=== PATIENT | male | born 1990 | race Two or more races ===

== ENCOUNTER 2022-12-14 11:01 | Inpatient (IN) ==
[2022-12-14 11:37] LABS: Basophils # (auto) 0.04 K/uL (0-0.2); Basophils % (auto) 0.6 %; Eosinophils # (auto) 0.04 K/uL (0-0.50); Eosinophils % (auto) 0.6 %; Hematocrit (blood only) 45.6 % (42.0-52.0); Hemoglobin 15.6 g/dl (14.0-18.0); Immature Granulocytes # (auto) 0.02 K/uL (0.01-0.20); Immature Granulocytes % (auto) 0.3 %; Lymphocytes % (auto) 14.1 %; Mean Corpuscular Hemoglobin 29.9 pg (25.0-34.0); Mean Corpuscular Hgb Conc 34.2 g/dL (32.0-36.0); Mean Corpuscular Volume 87.4 fL (80.0-100.0); Mean Platelet Volume 10.7 fL (9.4-12.4); Monocytes # (auto) 0.54 K/uL (0.11-0.59); Monocytes % (auto) 7.6 %; Neutrophils # (auto) 5.43 K/uL (1.40-6.50); Neutrophils % (auto) 76.8 %; Platelet Count 226 K/uL (130-400); RDW Coefficient of Variation 12.9 % (11.5-14.5); RDW Standard Deviation 41.3 fL (36.4-46.3); Red Blood Count 5.22 M/uL (4.70-6.10); White Blood Count 7.07 K/ul (4.8-10.8)
[2022-12-14 11:51] LABS: Calcium 9.5 mg/dl (8.6-10.3); Creatinine Clr Calc Pharmacy 206.5 ml/min; Est GFR (African American) 137.2 ml/min; Est GFR (Non-African American) 118.4 ml/min; Potassium 4.4 mmol/L (3.5-5.1)
--- NOTE | 2022-12-14 12:31 | Ultrasound Report ---
ULTRASOUND RIGHT UPPER QUADRANT ABDOMEN CLINICAL HISTORY: Right upper quadrant abdominal pain. COMPARISON STUDY: No priors. TECHNIQUE: Real-time, grayscale, and color flow sonography of the right upper quadrant of the abdomen was performed. Images are reviewed in the transverse and longitudinal planes. FINDINGS: Liver: The liver is normal in size and echotexture. There is no intrahepatic biliary ductal dilatatio n. The main portal vein is patent. Gallbladder: There are numerous shadowing calcified gallstones. The gallbladder is mildly distended. The gallbladder wall appears mildly thickened and edematous. No pericholecystic fluid is seen. A sono graphic Coronado's sign is reportedly absent. The common bile duct measures up to 0.9 cm in diameter. Pancreas: Not visualized due to overlying bowel gas. Right kidney: Survey images of the right kidney demonstrate normal size and echotexture. There is no hydronephrosis. Ascites: None. IMPRESSION: 1. Cholelithiasis within a distended and abnormal appearing gallbladder. Findings are suspicious for acute cholecystitis. Surgical assessment is advised. If clinically warranted a nuclear hepatobiliary scan could be considered for confirmation. 2. The common bile duct is dilated for age measuring up to 9 mm. 3. No intrahepatic biliary ductal dilatation is seen. 4. Nonvisualization of the pancreas. ACT 112: Negative or not required by law. Electronically signed by: Jayce Mckeon M.D. 12/14/2022 12:29 PM
--- NOTE | 2022-12-14 12:42 | Emergency Department Note ---
Impression & Plan Abdominal pain, RUQ, Transaminitis, Serum total bilirubin elevated, Choledocholithiasis ED Provider Note HISTORY OF PRESENT ILLNESS: Patient is a 32-year-old male presenting with right upper quadrant abdominal pain, nausea and vomiting. Patient reports he has been having symptoms for the last 2 weeks. He reports that 2 days ago he noticed that his skin was very yellow. He was evaluated at the [facility] and a urine sample was obtained that apparently looked "tea colored." He was instructed to present to the ER due to concern for potential gallbladder or liver etiology. Patient reports that his jaundice has improved over the last 48 hours. He reports he intermitt ently gets pain in his right upper quadrant over the last 2 weeks. He denies any history of abdominal surgeries. Reports nausea and multiple episodes of vomiting. Denies any diarrhea. Denies any notable fevers. Denies any chest pain or shortness of breath ROS: as above PHYSICAL EXAM: Constitutional: Patient appears in no acute distress. HENT: Head: Normocephalic and atraumatic. Eyes: EOMI, PERRL Mouth/Throat: Mucous membranes moist. Neck: Trachea midline. Neck supple. Cardiovascular: RRR, No murmurs, rubs or gallops. Intact distal pulses. Pulmonary/Chest: No respiratory distress. Breath sounds clear and equal bilaterally. No wheezes or rales. Abdominal: Abdomen soft, no rebound or guarding. RUQ TTP Musculoskeletal: No edema, tenderness or deformity noted. Skin: Warm and dry. No rash, erythema, pallor or cyanosis Psychiatric: Appropriate mood and affect for situation. Neurological: Alert and keenly responsive. CN II-XII grossly intact, moving all extremities equally and fully. MDM: - Vitals signs stable. - History obtained via patient. Patient presents with right upper quadrant abdominal pain, nausea and vomiting. Patient reports has been having symptoms intermittently for the last 2 weeks. Reports that 2 days ago he noticed that his skin was very yellow in color, but it has since improved. Reports that he having nausea and multiple episodes of vomiting. Denies any diarrhea. Denies any fevers. Denies any abdominal surgical history. - Chronic conditions affecting care: HTN - Differential diagnoses include, but are not limited to: Biliary colic; cholangitis; cholecystitis; hepatitis; right lower lobe pneumonia; pyelonephritis - Order placed for continuous cardiac monitoring. At this time, monitor showed rate of 70 bpm with normal sinus rhythm, per my interpretation. - External medical records reviewed. - Laboratory workup interpreted by myself showed normal WBC; hyponatremia (Na 125); elevated total bilirubin (6.9); transaminitis (AST 169; ALT 554); normal lipase - RUQ US showed cholelithiasis with distended and abnormal appearing gallbladder, concerning for acute cholecystitis. Common bile duct measures 9 mm. - CT abdomen/pelvis with IV contrast showed mild biliary ductal dilation and possible CBD stone. Noted to have mild gallbladder distension without adjacent infiltration. - IV zosyn ordered for coverage. - Patient given 1L NS in ER. He did not require any pain medications in ER. - Discussed case with Luis F CORADO air intercept controller, Dr. Reddy. He reports no capabilities of doing ERCP at this time. Recommended discussion with Marjan CORADO. - Discussed case with Marjan CORADO, Dr. Conway. Recommends admission to ospitalist service and plan for ERCP tomorrow. - Discussion was had with rn social services about patient's case and need for admission. - Hospitalist consulted for admission. - Patient admitted to [facility] service for further evaluation and management. ASSESSMENT AND PLAN: Diagnosis: RUQ abdominal pain; choledocholithiasis; nausea; transaminitis; elevated serum total bilirubin Plan: admit Past Med/Surg History Social History Smoking Status: Current every day smoker Tobacco Type: Cigarettes Feels Safe at Home: Yes Results & Data (ED) Vital Signs Vital Signs - 24 hr 12/14/22 11:06 12/14/22 12:26 12/14/22 14:27 Temperature 36.8 C Temperature Source Skin Pulse Rate 79 70 65 Respiratory Rate 18 18 18 Blood Pressure 130/78 136/72 117/59 L Blood Pressure Mean 95 93 78 Pulse Oximetry 97 98 99 Sepsis Recent Fever Within 48 Hours No Sepsis New/Unexplained Change in Mental Status No Sepsis Action Taken by Nursing No Action Required 12/14/22 14:31 Temperature Temperature Source Pulse Rate 69 Respiratory Rate Blood Pressure Blood Pressure Mean Pulse Oximetry Sepsis Recent Fever Within 48 Hours Sepsis New/Unexplained Change in Mental Status Sepsis Action Taken by Nursing Laboratory Data 12/14/22 11:17 12/14/22 11:17 Lab Results 12/14/22 12/14/22 Range/Units 11:17 11:17 WBC 7.07 (4.8-10.8) K/ul RBC 5.22 (4.70-6.10) M/uL Hgb 15.6 (14.0-18.0) g/dl Hct 45.6 (42.0-52.0) % MCV 87.4 (80.0-100.0) fL MCH 29.9 (25.0-34.0) pg MCHC 34.2 (32.0-36.0) g/dL RDW Std Deviation 41.3 (36.4-46.3) fL RDW Coeff of Mauro 12.9 (11.5-14.5) % Plt Count 226 (130-400) K/uL MPV 10.7 (9.4-12.4) fL Immature Gran % (Auto) 0.3 % Neut % (Auto) 76.8 % Lymph % (Auto) 14.1 % Collin % (Auto) 7.6 % Eos % (Auto) 0.6 % Baso % (Auto) 0.6 % Neut # (Auto) 5.43 (1.40-6.50) K/uL Lymph # (Auto) 1.00 L (1.2-3.4) K/uL Collin # (Auto) 0.54 (0.11-0.59) K/uL Eos # (Auto) 0.04 (0-0.50) K/uL Baso # (Auto) 0.04 (0-0.2) K/uL Immature Gran # (Auto) 0.02 (0.01-0.20) K/uL Sodium 125 L (136-145) mmol/L Potassium 4.4 (3.5-5.1) mmol/L Chloride 96 L (98-107) mmol/L Carbon Dioxide 20 L (21-32) mmol/L Anion Gap 9 (3-11) BUN 10 (6-23) mg/dl Creatinine 0.77 (0.6-1.4) mg/dl Est Cr Clr Drug Dosing 206.5 ml/min Est GFR ( Amer) 137.2 ml/min Est GFR (Non-Af Amer) 118.4 ml/min BUN/Creatinine Ratio 13.0 (10-20) Glucose 126 H (70-99(Fasting)) mg/dl Calcium 9.5 (8.6-10.3) mg/dl Total Bilirubin 6.9 H (0.2-1.0) mg/dl AST 169 H (13-39) U/L ALT 554 H (7-52) U/L Alkaline Phosphatase 211 H (34-104) U/L Total Protein 8.2 (6.0-8.3) gm/dl Albumin 4.8 (3.4-5.0) gm/dl Globulin 3.4 (2.5-4.0) gm/dl Albumin/Globulin Ratio 1.4 (0.9-2) Lipase 15 (11-82) U/L Administered Medications Piperacillin Sod/Tazobactam Sod (Zosyn) 4.5 gm in 120 mls @ 240 mls/hr IV NOW ONE Stop: 12/14/22 15:47 Last Admin: 12/14/22 15:34 Dose: 240 mls/hr Documented By: JOSIANE Sodium Chloride (Nss 1000ml) 1,000 mls @ 999 mls/hr IV .Q1H1M ONE Stop: 12/14/22 16:23 Last Admin: 12/14/22 15:38 Dose: 999 mls/hr Documented By: JOSIANE Discontinued Medications Sodium Chloride (Nss 1000ml) 1,000 mls @ 999 mls/hr IV .Q1H1M ONE Stop: 12/14/22 13:46 Last Infusion: 12/14/22 15:45 Dose: 0 mls/hr Documented By: Admin: 12/14/22 14:24 Dose: 999 mls/hr Documented By: TIM Ioversol (Ioversol 350 Mg 125ml Prefilled Syringe) 120 ml IV ONCE ONE Stop: 12/14/22 13:05 Last Admin: 12/14/22 13:04 Dose: 120 ml Documented By: ELE Imaging Data Radiologist's Impression: Gallbladder Ultrasound 12/14/22 11:31 ULTRASOUND RIGHT UPPER QUADRANT ABDOMEN CLINICAL HISTORY: Right upper quadrant abdominal pain. COMPARISON STUDY: No priors. TECHNIQUE: Real-time, grayscale, and color flow sonography of the right upper quadrant of the abdomen was performed. Images are reviewed in the transverse and longitudinal planes. FINDINGS: Liver: The liver is normal in size and echotexture. There is no intrahepatic biliary ductal dilatation. The main portal vein is patent. Gallbladder: There are numerous shadowing calcified gallstones. The gallbladder is mildly distended. The gallbladder wall appears mildly thickened and edematous. No pericholecystic fluid is seen. A sonographic Coronado's sign is reportedly absent. The common bile duct measures up to 0.9 cm in diameter. Pancreas: Not visualized due to overlying bowel gas. Right kidney: Survey images of the right kidney demonstrate normal size and echo texture. There is no hydronephrosis. Ascites: None. IMPRESSION: 1. Cholelithiasis within a distended and abnormal appearing gallbladder. Findings are suspicious for acute cholecystitis. Surgical assessment is advised. If clinically warranted a nuclear hepatobiliary scan could be considered for confirmation. 2. The common bile duct is dilated for age measuring up to 9 mm. 3. No intrahepatic biliary ductal dilatation is seen. 4. Nonvisualization of the pancreas. ACT 112: Negative or not required by law. Electronically signed by: Jayce Mckeon M.D. 12/14/2022 12:29 PM Abdomen/Pelvis CT 12/14/22 12:40 CT OF THE ABDOMEN AND PELVIS WITH CONTRAST CLINICAL HISTORY: RUQ abdominal pain; jaundice COMPARISON STUDY: Right upper quadrant ultrasound performed earlier today. TECHNIQUE: Following IV administration of 120 mL of Optiray, axial images of the abdomen and pelvis were obtained from the lung bases to the proximal femurs. Images were reviewed in the axial, sagittal, and coronal planes. IV contrast was administered without complication. Automated exposure control was utilized for the study. A dose lowering technique was utilized adhering to the principles of ALARA. CT DOSE: 1648.11 mGy.cm FINDINGS: Lung bases are unremarkable. No pneumatosis, free air or portal venous gas is present. There is mild intra and extrahepatic biliary ductal dilatation. Common bile duct measures 8 mm in caliber. There are equivocal stones within the common bile duct. The gallbladder is mildly distended. There is no adjacent infiltration. Gallstones within the gallbladder on ultrasound are not evident by CT. There is no evidence for acute pancreatitis by CT. Spleen, adrenal glands and kidneys are normal. There is no hydronephrosis. The appendix is normal. There is no evidence for a bowel obstruction. IMPRESSION: 1. Mild biliary ductal dilatation. Possible common bile duct calculi. If indicated, MRCP could be obtained for confirmation. 2. Mild gallbladder distention without adjacent infiltration. Gallstones on ultrasound are not evident by CT. If suspicion for acute cholecystitis, a hepatobiliary scan could be obtained. 3. No CT evidence for acute pancreatitis. 4. Normal appendix. No bowel obstruction. No bowel wall thickening. ACT 112: Negative or not required by law. Electronically signed by: Yasir East M.D. 12/14/2022 1:34 PM Discharge Plan Visit Data Chief Complaint: Abdominal Pain Stated Complaint: RUQ PAIN,X2 WEEKS VOMITING,DARK URINE,PAIN ED Provider: Sheila Cortés Discharge Problem: Abdominal pain, RUQ, Transaminitis, Serum total bilirubin elevated, Choledocholithiasis Forms Stand Alone Forms: My [facility] Referrals Referrals: Olga PAIZ [Primary Care Provider] -
[2022-12-14] MEDS ORDERED: SODIUM CHLORIDE 0.9% 1000ML 1,000 ML IV ONE ×2 (12:46→15:23)
[2022-12-14] MEDS ORDERED: IOVERSOL 350 MG 125mL Prefilled Syringe IV ONE (13:04)
--- NOTE | 2022-12-14 13:35 | CT Scan Report ---
CT OF THE ABDOMEN AND PELVIS WITH CONTRAST CLINICAL HISTORY: RUQ abdominal pain; jaundice COMPARISON STUDY: Right upper quadrant ultrasound performed earlier today. TECHNIQUE: Following IV administration of 120 mL of Optiray, axial images of the abdomen and pelvis w ere obtained from the lung bases to the proximal femurs. Images were reviewed in the axial, sagittal, and coronal planes. IV contrast was administered without complication. Automated exposure control w as utilized for the study. A dose lowering technique was utilized adhering to the principles of HUMERA Andrew. CT DOSE: 1648.11 mGy.cm FINDINGS: Lung bases are unremarkable. No pneumatosis, free air or portal venous gas is present. Ther e is mild intra and extrahepatic biliary ductal dilatation. Common bile duct measures 8 mm in caliber . There are equivocal stones within the common bile duct. The gallbladder is mildly distended. There is no adjacent infiltration. Gallstones within the gallbladder on ultrasound are not evident by CT. T here is no evidence for acute pancreatitis by CT. Spleen, adrenal glands and kidneys are normal. Ther e is no hydronephrosis. The appendix is normal. There is no evidence for a bowel obstruction. IMPRESSION: 1. Mild biliary ductal dilatation. Possible common bile duct calculi. If indicated, MRCP could be obt ained for confirmation. 2. Mild gallbladder distention without adjacent infiltration. Gallstones on ultrasound are not eviden t by CT. If suspicion for acute cholecystitis, a hepatobiliary scan could be obtained. 3. No CT evidence for acute pancreatitis. 4. Normal appendix. No bowel obstruction. No bowel wall thickening. ACT 112: Negative or not required by law. Electronically signed by: Yasir East M.D. 12/14/2022 1:34 PM
[2022-12-14 13:56] LABS: Albumin Globulin Ratio 1.4 (0.9-2); Albumin Level 4.8 gm/dl (3.4-5.0); Bilirubin,Total 6.9 mg/dl (0.2-1.0); Globulin 3.4 gm/dl (2.5-4.0); Total Protein 8.2 gm/dl (6.0-8.3)
[2022-12-14] MEDS ORDERED: PIPERACILLIN/TAZOBACTAM 4.5 GM/120 ML BAG IV ONE (15:18)
--- NOTE | 2022-12-14 16:38 | History & Physical Report ---
Date of Service December 14, 2022 Assessment & Plan (1) Abdominal pain, RUQ: (2) Choledocholithiasis: (3) Transaminitis: Plan: 32-year-old obese man with history of hypertension who presents with intermittent right upper quadrant pain that started 2 weeks ago and jaundice Labs notable for sodium of 125, total bilirubin of 6.9, AST of 169, ALT of 554, alkaline phosphatase of 211. Gallbladder ultrasound noted cholelithiasis within a distended and abnormally appearing gallbladder, findings suspicious for acute cholecystitis. CBD dilated up to [address] noted mild biliary ductal dilatation, possible CBD calculi, mild gallbladder distention without adjacent infiltration. Patient has choledocholithiasis, obstructive jaundice. ER physician already discussed with GI. We will keep patient on clears today and n.p.o. past midnight for ERCP tomorrow. Based on patient's history, physical exam and current lab work; my suspicion for cholecystitis is very low. Reported last episode of pain was about 3 days ago. No fever, no leukocytosis, no tenderness on palpation Got Zosyn in ER. We will hold off further antibiotics and monitor. Continue to monitor LFTs (4) Hyponatremia: Plan: Sodium is 125. Does not have any previous labs to compare. Get serum osmolality, urine osmolality and urine sodium We will repeat a BMP as well. We will monitor (5) Hypertension: Plan: Controlled. Continue home medication for now monitor (6) Morbid obesity with BMI of 45.0-49.9, adult: Plan: Patient is morbidly obese. Lifestyle modification education. Need to lose weight. DVT prophylaxisSCD for today. I spent a total of 65 minutes coordinating, documenting and providing care for this patient excluding time spent in performance of separately billed services History of Present Illness Chief Complaint: Jaundice. RUQ pain Primary Care Provider: CHENCHO Espinoza 32-year-old man with history of hypertension, gastritis who presents with right upper quadrant pain that started 2 weeks ago and jaundice. Patient reported that he started having nausea and vomiting 2 weeks ago after eating some food at the [facility]. Right upper quadrant pain started shortly after. Pain was intermittent, severe, nonradiating, no known relieving or aggravating factors. Last episode of pain was about 3 days ago. He also noted change in color of his urine to tea colored for the past few days. Reported that he was told he was yellowish 2 days ago He reported that [facility] test at [facility] was noted to be abnormal and they sent him to the ER. Denied any fevers, chills. No nausea vomiting today. Reported 2 episodes of shelli colored loose stool earlier today. Denied any hematochezia, melena. Denied shortness of breath. Reports chronic cough which he attributes to e- cigarette smoking. Denied chest pain, headache, dizziness. Denied dysuria, frequency urgency. Denied alcohol or illicit drug use. Reports tonsillectomy as a kid. Reports allergy to fish [rash]. Reports family history of brain tumor in mother and father from unknown cancer. Allergies Allergy/AdvReac Type Severity Reaction Status Date / Time Fish Containing Products Allergy Unknown ON SCI Verified 12/14/22 16:20 [facility] Home Medications Medication Instructions Recorded Confirmed Type amlodipine 5 mg tablet 5 mg PO DAILY 12/14/22 12/14/22 History atorvastatin 20 mg tablet 20 mg PO DAILY 12/14/22 12/14/22 History lisinopril 20 mg tablet 20 mg PO BID 12/14/22 12/14/22 History sucralfate 1 gram tablet 1 g PO TID 12/14/22 12/14/22 History Past Med/Surg History Social History Smoking Status: Current every day smoker Tobacco Type: Cigarettes Feels Safe at Home: Yes Review of Systems Constitutional: no fever, no chills, no fatigue and no anorexia Eyes: no worsening vision Respiratory: + cough; no chest congestion and no dyspnea Cardiovascular: no chest pain, no dyspnea and no lightheadedness Gastrointestinal: + abdominal pain, + change in stools and + diarrhea/loose stools; no constipation and no blood in stools Genitourinary: no dysuria, no difficulty urinating or no decreased urination Integumentary: + yellowing of the skin Neurologic: no generalized weakness, no abnormal movements, no headache(s), no confusion and no memory loss Psychiatric: no depression and no anxiety Physical Exam Constitutional: + well hydrated and + obese; no acute distress Eyes: +icterus ENMT: external ear and nose normal, oropharynx normal Respiratory: normal respiratory effort, lungs clear to auscultation Cardiovascular: Rate/Rhythm: regular rate and regular rhythm S1 S2 Gastrointestinal (Abdomen): normal bowel sounds, soft, nontender, no hepatosplenomegaly Musculoskeletal: no cyanosis or clubbing, extremities motor strength 5/5 No pedal edema Skin: +Jaundice Neurologic: PERRL, EOMI, accommodation nl, no face palsy, no dysarthria Psychiatric: A+Ox3, euthymic affect Results & Data Results & Data Vital Signs (Past 12 Hours) Vital Signs Temp Pulse Resp BP Pulse Ox 12/14/22 16:00 64 100 12/14/22 15:30 100 12/14/22 15:00 65 100 12/14/22 14:30 64 100 12/14/22 14:30 109/57 L 12/14/22 14:31 69 12/14/22 14:27 65 18 117/59 L 99 12/14/22 12:26 70 18 136/72 98 12/14/22 11:06 36.8 C 79 18 130/78 97 Laboratory Results Abnormal lab results 12/14/22 12/14/22 Range/Units 11:17 11:17 Lymph # (Auto) 1.00 L (1.2-3.4) K/uL Sodium 125 L (136-145) mmol/L Chloride 96 L (98-107) mmol/L Carbon Dioxide 20 L (21-32) mmol/L Glucose 126 H (70-99(Fasting)) mg/dl Total Bilirubin 6.9 H (0.2-1.0) mg/dl AST 169 H (13-39) U/L ALT 554 H (7-52) U/L Alkaline Phosphatase 211 H (34-104) U/L Diagnostic Findings Abdominal/pelvis CT FINDINGS: Lung bases are unremarkable. No pneumatosis, free air or portal venous gas is present. There is mild intra and extrahepatic biliary ductal dilatation. Common bile duct measures 8 mm in caliber. There are equivocal stones within the common bile duct. The gallbladder is mildly distended. There is no adjacent infiltration. Gallstones within the gallbladder on ultrasound are not evident by CT. There is no evidence for acute pancreatitis by CT. Spleen, adrenal glands and kidneys are normal. There is no hydronephrosis. The appendix is normal. There is no evidence for a bowel obstruction. IMPRESSION: 1. Mild biliary ductal dilatation. Possible common bile duct calculi. If indicated, MRCP could be obtained for confirmation. 2. Mild gallbladder distention without adjacent infiltration. Gallstones on ultrasound are not evident by CT. If suspicion for acute cholecystitis, a hepatobiliary scan could be obtained. 3. No CT evidence for acute pancreatitis. 4. Normal appendix. No bowel obstruction. No bowel wall thickening. Gallbladder ultrasound FINDINGS: Liver: The liver is normal in size and echotexture. There is no intrahepatic biliary ductal dilatation. The main portal vein is patent. Gallbladder: There are numerous shadowing calcified gallstones. The gallbladder is mildly distended. The gallbladder wall appears mildly thickened and edematous. No pericholecystic fluid is seen. A sonographic Coronado's sign is reportedly absent. The common bile duct measures up to 0.9 cm in diameter. Pancreas: Not visualized due to overlying bowel gas. Right kidney: Survey images of the right kidney demonstrate normal size and echotexture. There is no hydronephrosis. Ascites: None. IMPRESSION: 1. Cholelithiasis within a distended and abnormal appearing gallbladder. Fin dings are suspicious for acute cholecystitis. Surgical assessment is advised. If clinically warranted a nuclear hepatobiliary scan could be considered for confirmation. 2. The common bile duct is dilated for age measuring up to 9 mm. 3. No intrahepatic biliary ductal dilatation is seen. 4. Nonvisualization of the pancreas.
[2022-12-14 17:23] LABS: Appearance Urine Clear (Clear); Blood Urine Negative (Negative); Color Urine Dark Yellow; Glucose Urine UA Negative (Negative); Ketones Urine Negative (Negative); Leukocyte Esterase Urine Negative (Negative); Nitrite Urine Negative (Negative); Protein Urine Negative (Negative); Specific Gravity Urine 1.031 (1.000-1.030); Urobilinogen Urine Negative (Negative); pH Urine 5.5 (4.5-7.5)
[2022-12-14 17:42] LABS: Bilirubin Urine 2+ (Negative)
[2022-12-14] MEDS: SUCRALFATE 1 GM TAB PO SCH (20:39)
[2022-12-14] MEDS: lisinopril 20 MG TAB PO SCH (20:39)
[2022-12-14 21:14] LABS: BUN Creatinine Ratio 9.9 (10-20); Calcium 9.4 mg/dl (8.6-10.3); Creatinine Clr Calc Pharmacy 196.3 ml/min; Est GFR (African American) 134.4 ml/min; Potassium 4.4 mmol/L (3.5-5.1)
[2022-12-15 08:25] LABS: Hematocrit (blood only) 43.6 % (42.0-52.0); Hemoglobin 15.1 g/dl (14.0-18.0); Mean Corpuscular Hemoglobin 30.1 pg (25.0-34.0); Mean Corpuscular Hgb Conc 34.6 g/dL (32.0-36.0); Mean Platelet Volume 11.3 fL (9.4-12.4); Platelet Count 182 K/uL (130-400); RDW Coefficient of Variation 13.2 % (11.5-14.5); RDW Standard Deviation 42.7 fL (36.4-46.3); Red Blood Count 5.01 M/uL (4.70-6.10); White Blood Count 6.32 K/ul (4.8-10.8)
[2022-12-15] MEDS: SUCRALFATE 1 GM TAB PO SCH ×3 (08:35→19:42)
[2022-12-15] MEDS: lisinopril 20 MG TAB PO SCH (08:35)
[2022-12-15] MEDS: amLODIPine BESYLATE 5 MG TAB PO SCH (08:35)
[2022-12-15] MEDS: ATORVASTATIN 20 MG TAB PO SCH (08:36)
[2022-12-15 08:55] LABS: Potassium 4.4 mmol/L (3.5-5.1)
[2022-12-15 08:56] LABS: Albumin Globulin Ratio 1.4 (0.9-2); Albumin Level 4.4 gm/dl (3.4-5.0); Bilirubin,Total 8.4 mg/dl (0.2-1.0); Calcium 9.6 mg/dl (8.6-10.3); Creatinine Clr Calc Pharmacy 211.8 ml/min; Est GFR (African American) 138.7 ml/min; Est GFR (Non-African American) 119.7 ml/min; Globulin 3.1 gm/dl (2.5-4.0); Total Protein 7.5 gm/dl (6.0-8.3)
--- NOTE | 2022-12-15 09:44 | Gastrointestinal Consultation ---
Date of Consultation December 15, 2022 Assessment & Plan (1) Choledocholithiasis: Plan Plan for ERCP this afternoon by Dr. Shields. Please keep n.p.o. Further recommendations to follow ERCP. Eventual cholecystectomy. Gen surgery consult placed. Supervising Physician Co-Signing Physician Notes I have seen and examined the patient with TAYLOR Bautista whose note reflects our findings and plan. ERCP planned for this afternoon. General surgery on board for eventual reyes History of Present Illness Reason for Consultation: choledocholithiasis Requesting Physician: Dr. Cortés Attending Physician: Lana Hackett MD History of Present Illness Mr. Reinier Hummel is a 32-year-old male patient who is an inmate who was brought to [facility] yesterday for elevated LFTs, right upper quadrant pain. He reports that this began about 2 weeks ago after eating and persisted an hour or 2. Since then he has had intermittent right upper quadrant pain nausea and diarrhea. He also had a few days of acholic stools and dark urine. On arrival in the ED, LFTs were markedly elevated with a total bilirubin of 6.9, AST of 69 ALT 554 and alk phos 211. Lipase was normal. US w distended gallbladder and stones. CT w mild Jorje Dil and possible CBD stone. This morning, the patient is awake alert oriented, hemodynamically stable, free of pain. He is n.p.o. and awaiting ERCP this afternoon. He received 1 dose of Zosyn. He has not had leukocytosis or fever. Allergies Allergy/AdvReac Type Severity Reaction Status Date / Time Fish Containing Products Allergy Unknown ON SCI Verified 12/14/22 16:20 [facility] MED LIST Home Medications Medication Instructions Recorded Confirmed Type amlodipine 5 mg tablet 5 mg PO DAILY 12/14/22 12/14/22 History atorvastatin 20 mg tablet 20 mg PO DAILY 12/14/22 12/14/22 History lisinopril 20 mg tablet 20 mg PO BID 12/14/22 12/14/22 History sucralfate 1 gram tablet 1 g PO TID 12/14/22 12/14/22 History Patient History Medical History Choledocholithiasis Hypertension Hyponatremia Morbid obesity with BMI of 45.0-49.9, adult Transaminitis Social History Smoking Status: Current every day smoker Tobacco Type: Cigarettes Hx Alcohol Use: No Preferred Language: [place]i 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 Beliefs That Will Affect Care: None Current Living Situation: Other Feels Safe at Home: Yes Review of Systems Review of Systems: ROS: Gen: Denies weakness, fevers, weight loss Eyes: No eye redness, or pain, no recent vision changes Resp: No SOB, no cough Cardio: No palpitations/irregular beats, no chest pain GI: As per HPI otherwise negative : Denies pain on urination Skin: + jaundice; no itching or new rashes Ext: no edema Physical Exam Constitutional: well developed, well nourished and + overweight; no acute distress Eyes: + scleral abnormality (mild icterus), PERRL and EOM intact bilaterally ENMT: external ear and nose normal, oropharynx normal Neck: trachea midline, no thyromegaly Respiratory: normal respiratory effort, lungs clear to auscultation Cardiovascular: RRR, no murmur, no edema Gastrointestinal (Abdomen): Inspection/Auscultation: abdomen normal to inspection and + hypoactive bowel sounds; abdomen not distended Percussion/Palpation: + abdomen tender (Mild epigastric) and abdomen soft; no guarding and no abdominal mass Musculoskeletal: no cyanosis or clubbing, extremities motor strength 5/5 Skin: no rashes and no lesions mild jaundice Psychiatric: A+Ox3, euthymic affect Lymphatic: no cervical or axillary lymphadenopathy Results & Data Vital Signs (Past 12 Hours) Vital Signs Temp Pulse Resp BP Pulse Ox O2 Del Method 12/15/22 07:33 36.8 C 69 15 101/66 97 Room Air Laboratory Results WBC 6.3, Hb 15, HCT 43, PLT S182, NA 127, K4.4, CL 97, CO2 24, BUN 9, CR 0.75, glucose 121 Lipase normal Diagnostic Findings RUQ US 12/15/22: 1. Cholelithiasis within a distended and abnormal appearing gallbladder. Findings are suspicious for acute cholecystitis. Surgical assessment is advised. If clinically warranted a nuclear hepatobiliary scan could be considered for confirmation. 2. The common bile duct is dilated for age measuring up to 9 mm. 3. No intrahepatic biliary ductal dilatation is seen. 4. Nonvisualization of the pancreas. CTAP w IV 12/14/22: 1. Mild biliary ductal dilatation. Possible common bile duct calculi. If indicated, MRCP could be obtained for confirmation. 2. Mild gallbladder distention without adjacent infiltration. Gallstones on ultrasound are not evident by CT. If suspicion for acute cholecystitis, a hepatobiliary scan could be obtained. 3. No CT evidence for acute pancreatitis. 4. Normal appendix. No bowel obstruction. No bowel wall thickening
--- NOTE | 2022-12-15 09:55 | Anesthesiology Consultation ---
Date of Service December 15, 2022 Assessment & Plan (1) Encounter for pre-operative examination: Chart Review Chart Review: Acceptable Risk for Surgery and Patient NOT seen in Pre Admission Testing Consults Requested none ASA ASA3 Proposed Anesthesia Anesthesia Type: General Risk / Benefits Reviewed With: PT / POA / Parent / Guardian, Accepts Plan and I nformed Consent Obtained History Surgery Operation Date: 12/15/22 07:50 Proposed Procedures p Endoscopic Retrograde Cholangiopancreato - Sanya Shields MD Height/Weight Height: 5 ft 11 in Weight: 156.8 kg Allergies Allergy/AdvReac Type Severity Reaction Status Date / Time Fish Containing Products Allergy Unknown ON SCI Verified 12/14/22 16:20 [facility] MED LIST Medications Home Medications Medication Instructions Recorded Confirmed Last Taken amlodipine 5 mg tablet 5 mg PO DAILY 12/14/22 12/14/22 Unknown atorvastatin 20 mg tablet 20 mg PO DAILY 12/14/22 12/14/22 Unknown lisinopril 20 mg tablet 20 mg PO BID 12/14/22 12/14/22 Unknown sucralfate 1 gram tablet 1 g PO TID 12/14/22 12/14/22 Unknown Active Medications Generic Name Dose Route Start Last Admin Trade Name Freq PRN Reason Stop Dose Admin Amlodipine Besylate 5 mg 12/15/22 09:00 12/15/22 08:35 Amlodipine Besylate 5 Mg Tab PO 01/14/23 08:59 5 mg DAILY JOSE Administration Atorvastatin Calcium 20 mg 12/15/22 09:00 12/15/22 08:36 Atorvastatin 20 Mg Tab PO 01/14/23 08:59 20 mg DAILY JOSE Administration Sucralfate 1 gm 12/14/22 21:00 12/15/22 08:35 Sucralfate 1 Gm Tab PO 01/13/23 20:59 1 gm TID JOSE Administration NPO Date Last Intake of Fluids: 12/14/22 Time Last Intake of Fluids: 23:59 Date Last Intake of Solids: 12/14/22 Time Last Intake of Solids: 23:59 Past Medical History Medical History (Updated 12/15/22 @ 13:59 by Aryan Ley MD) Choledocholithiasis Encounter for pre-operative examination Hypertension Hyponatremia Morbid obesity with BMI of 45.0-49.9, adult Transaminitis Exercise / Class Metabolic Activity II 4-5 Yardwork/Stairs/Walk up hill Past Anesthesia History No Hx of Anesthesia Complications and No Family Hx of Anesthesia Complications History of PONV No Hx of PONV and No Hx of Motion Sickness Social History Smoking Status: Current every day smoker tobacco type: e-cigarettes Hx Alcohol Use: No Physical Exam Vital Signs Last Vital Signs Temp 37.2 C 12/15/22 12:56 Pulse 74 12/15/22 12:56 Resp 20 12/15/22 12:56 BP 136/67 12/15/22 12:56 Pulse Ox 96 12/15/22 12:56 O2 Del Method Room Air 12/15/22 12:56 Constitutional + morbidly obese ENMT Mouth: no TMJ abnormality Thyromental Distance: > or= 3.5 Finger Breadths Mallampati Class: II Neck normal visual inspection and trachea midline; neck extension not limited Respiratory normal respiratory effort Auscultation: lungs clear to auscultation bilaterally Cardiovascular Rate/Rhythm: regular rate and regular rhythm Heart Sounds: no murmur Musculoskeletal Spine: normal cervical ROM Extremities: full ROM of extremities Neurologic moves all extremities Psychiatric Orientation: alert and oriented x 3 Testing Laboratory Results 12/15/22 07:15 12/15/22 13:03 Urine Color Dark Yellow 12/14/22 12:35 Urine Appearance Clear (Clear) 12/14/22 12:35 Urine pH 5.5 (4.5-7.5) 12/14/22 12:35 Ur Specific [place] 1.031 (1.000-1.030) H 12/14/22 12:35 Urine Protein Negative (Negative) 12/14/22 12:35 Urine Glucose (UA) Negative (Negative) 12/14/22 12:35 Urine Ketones Negative (Negative) 12/14/22 12:35 Urine Nitrite Negative (Negative) 12/14/22 12:35 Ur Leukocyte Esterase Negative (Negative) 12/14/22 12:35 spoke with hospitalist re hyponatremia. Working with nephro for correction. Re check prior to OR Electrocardiogram Date: 12/15/22 Normal sinus rhythm Rightward axis Low voltage QRS Borderline ECG No previous ECGs available
[2022-12-15] MEDS ORDERED: FUROSEMIDE 40 MG/4 ML VIAL IV ONE (10:01)
[2022-12-15] MEDS ORDERED: SODIUM CHLORIDE 0.9% 1000ML 2,000 ML IV ONE (10:10)
[2022-12-15] MEDS ORDERED: SODIUM CHLORIDE 0.9% 1000ML 1,000 ML IV SCH (10:15)
--- NOTE | 2022-12-15 10:31 | Nephrology Consultation ---
Date of Consultation December 15, 2022 Assessment & Plan (1) Hyponatremia: Based on the physical exam history and the urine test the etiology of hyponatremia appears to be a combination of underlying SIADH likely triggered by the persistent nausea he has had for the last few days as well as low solute diet. For the last few days he really has not been eating much solid food as it made his symptoms worse. But he was still drinking decent amount of liquid. Sodium is 127 and would like to corrected to 130+ in the next few hours. We will give him another 1.5 L of normal saline bolus and give 1 dose of Lasix 40 IV. With the normal saline he should get enough solute/volume load and with the Lasix we should get some free water diuresis causing rise in his serum sodium. At this point he is strict n.p.o. so would not give him biliary or salt tablet. Next BMP will be done at 1:30 PM. Hopefully after that he can go to the operating room for ERCP Case was discussed with hospitalist (2) Transaminitis: Abnormal LFTs consistent with obstructive pattern related with gallstone and is undergoing ERCP later today. History of Present Illness Reason for Consultation: Hyponatremia Attending Physician: Lana Hackett MD History of Present Illness 32-year-old male who was sent over from [facility] because of nausea poor appetite jaundice which has been going on for many days now. He has not been eating much. Denies diarrhea abdominal pain chest pain shortness of breath or other symptoms. We do not have much records of his prior health issues. But he claims he has not had any problems other than hypertension for which he takes medication amlodipine and lisinopril and also takes Lipitor for hyperlipidemia. Denies taking any NSAID. He has not been on any diuretics or SSRIs prior to admission. Sodium was 126 on admission then went up to 129 with 2 L of normal saline and then dropped again to 127 this. He was found to have obstructive jaundice and is undergoing ERCP later today. LFTs were markedly elevated with a total bilirubin of 6.9, AST of 69 ALT 554 and alk phos 211. Lipase was normal. US w distended gallbladder and stones. CT w mild Jorje Dil and possible CBD stone. At this time patient denies any major symptoms Review of system----12 system reviewed and negative other than positive symptoms which includes nausea poor appetite some abdominal discomfort during and gastric reflux-like symptoms. Allergies Allergy/AdvReac Type Severity Reaction Status Date / Time Fish Containing Products Allergy Unknown ON SCI Verified 12/14/22 16:20 [facility] MED LIST Home Medications Medication Instructions Recorded Confirmed Type amlodipine 5 mg tablet 5 mg PO DAILY 12/14/22 12/14/22 History atorvastatin 20 mg tablet 20 mg PO DAILY 12/14/22 12/14/22 History lisinopril 20 mg tablet 20 mg PO BID 12/14/22 12/14/22 History sucralfate 1 gram tablet 1 g PO TID 12/14/22 12/14/22 History Patient History Medical History Choledocholithiasis Hypertension Hyponatremia Morbid obesity with BMI of 45.0-49.9, adult Transaminitis Social History Smoking Status: Current every day smoker Tobacco Type: Cigarettes Hx Alcohol Use: No Preferred Language: [place] Student Services Counselor Required: No Beliefs That Will Affect Care: None Current Living Situation: Other Feels Safe at Home: Yes Results & Data Vital Signs (Past 12 Hours) Vital Signs Temp Pulse Resp BP Pulse Ox O2 Del Method 12/15/22 07:33 36.8 C 69 15 101/66 97 Room Air Laboratory Results Sodium most recent 127 urine osmolarity 450+ urine sodium 90+ LFT abnormal with patterns consistent with obstructive jaundice Diagnostic Findings Ultrasound shows gallbladder stones
--- NOTE | 2022-12-15 12:20 | Surgery Consultation ---
Date of Consultation December 15, 2022 Assessment & Plan (1) Choledocholithiasis: (2) Transaminitis: (3) Cholelithiasis: Plan 32 year-old male prisoner with history of RUQ pain that started 2 weeks ago associated with eating and then had nause and vomiting. Had episode of pain on Sunday and then followed with jaundice, acholic stools, and dark urine. Labs show elevated t. bili up to 8.4 today with elevated LFTS. CT scan and ultrasound showing gallstones with dilated gallbladder and dilated CBD concerning for choledocholithiasis. Afebrile and normal wbc. No pain since Sunday. Plan: Going for ERCP today Keep NPO Sodium correction per assurance assistant Will discuss with Dr. Henry and determine timing for cholecystectomy. continue to follow t. bili and lfts Continue medical management Updated and rounded with Dr. Henry who agrees with my above assessment and plan. Possible lap reyes on Sunday pending ERCP results today. Supervising Physician Co-Signing Physician Notes Patient seen and examined. Agree with above documentation and plan. ERCP today and will consider lap reyes this hospitalization. History of Present Illness Reason for Consultation: Cholelithiasis, Choledocholithiasis Requesting Physician: TAYLOR Fermin Attending Physician: Lana Hackett MD History of Present Illness Reinier is a 32 year-old prisoner with past medical history of hypertension, hyperlipidemia , and morbid obesity who presented to emergency department due to abdominal pain that started 2 weeks ago with associated nausea, vomiting, jaundice, acholic stools, and dark urine that started this Sunday. ER work-up included labs which showed normal wbc. T. bili elevated at 6.9. LFTS elevated: AST 169, ALT 554, ALK 211. Lipase within normal limits. CT scan of abd/pelvis with contrast showing dilated CBD with possible choledocholithiasis. Ultrasound showed distended gallbladder with gallstones and wall thickening however no pericholecystic fluid. He is scheduled for ERCP this afternoon with Dr. Shields. Sodium is currently low in which nephrology was consulted and trying to correct. No prior history of gallbladder issues. No prior abodminal surgeries. No history of blood thinning agents or blood clots. Denies of any fever or chills with the onset of pain and symptoms above. Allergies Allergy/AdvReac Type Severity Reaction Status Date / Time Fish Containing Products Allergy Unknown ON SCI Verified 12/14/22 16:20 [facility] MED LIST Home Medications Medication Instructions Recorded Confirmed Type amlodipine 5 mg tablet 5 mg PO DAILY 12/14/22 12/14/22 History atorvastatin 20 mg tablet 20 mg PO DAILY 12/14/22 12/14/22 History lisinopril 20 mg tablet 20 mg PO BID 12/14/22 12/14/22 History sucralfate 1 gram tablet 1 g PO TID 12/14/22 12/14/22 History Patient History Medical History (Updated 12/15/22 @ 13:59 by Aryan Ley MD) Choledocholithiasis Encounter for pre-operative examination Hypertension Hyponatremia Morbid obesity with BMI of 45.0-49.9, adult Transaminitis Social History Smoking Status: Current every day smoker Tobacco Type: Cigarettes Hx Alcohol Use: No Preferred Language: Ecuadorean Communication Ability: Effective [employer] Required: No Beliefs That Will Affect Care: None Current Living Situation: Other Feels Safe at Home: Yes Assistive Devices: None Review of Systems Review of Systems: All systems reviewed & are unremarkable except as noted in HPI & below Physical Exam Constitutional: WD/WN, vitals as above + morbidly obese, cooperative and comfortable; no acute distress, not ill appearing and not diaphoretic Respiratory: normal respiratory effort, lungs clear to auscultation Cardiovascular: RRR, no murmur, no edema Gastrointestinal (Abdomen): Inspection/Auscultation: abdomen normal to inspection; abdomen not distended Percussion/Palpation: abdomen soft; abdomen nontender, no guarding and abdomen not rigid Skin: no rashes, warm and dry + jaundice Psychiatric: A+Ox3, euthymic affect Results & Data Vital Signs (Past 12 Hours) Vital Signs Temp Pulse Resp BP Pulse Ox O2 Del Method 12/15/22 07:33 36.8 C 69 15 101/66 97 Room Air Laboratory Results 12/15/22 12/15/22 12/15/22 Range/Units Unknown 07:15 07:15 WBC (4.8-10.8) K/ul RBC (4.70-6.10) M/uL Hgb (14.0-18.0) g/dl Hct (42.0-52.0) % MCV (80.0-100.0) fL MCH (25.0-34.0) pg MCHC (32.0-36.0) g/dL RDW Std Deviation (36.4-46.3) fL RDW Coeff of Mauro (11.5-14.5) % Plt Count (130-400) K/uL MPV (9.4-12.4) fL Sodium 127 L (136-145) mmol/L Potassium 4.4 (3.5-5.1) mmol/L Chloride 97 L (98-107) mmol/L Carbon Dioxide 21 (21-32) mmol/L Anion Gap 9 (3-11) BUN 9 (6-23) mg/dl Creatinine 0.75 (0.6-1.4) mg/dl Est Cr Clr Drug Dosing 211.8 ml/min Est GFR ( Amer) 138.7 ml/min Est GFR (Non-Af Amer) 119.7 ml/min BUN/Creatinine Ratio 12.0 (10-20) Glucose 121 H (70-99(Fasting)) mg/dl Osmolality (280-300) mOsm/kg Calcium 9.6 (8.6-10.3) mg/dl Total Bilirubin 8.4 H (0.2-1.0) mg/dl AST 161 H (13-39) U/L ALT 479 H (7-52) U/L Alkaline Phosphatase 187 H (34-104) U/L Total Protein 7.5 (6.0-8.3) gm/dl Albumin 4.4 (3.4-5.0) gm/dl Globulin 3.1 (2.5-4.0) gm/dl Albumin/Globulin Ratio 1.4 (0.9-2) Lipase (11-82) U/L TSH 1.265 (0.300-4.500) uIu/ml Urine Color Urine Appearance (Clear) Urine pH (4.5-7.5) Ur Specific [place] (1.000-1.030) Urine Protein (Negative) Urine Glucose (UA) (Negative) Urine Ketones (Negative) Urine Blood (Negative) Urine Nitrite (Negative) Urine Bilirubin (Negative) Urine Urobilinogen (Negative) Ur Leukocyte Esterase (Negative) Urine Osmolality (500-800) mOsm/kg Ur Random Sodium mmol/L Nasal Screen MRSA (PCR) Negative (Negative) SARS-CoV-2, RNA, NAAT (NEGATIVE) 12/15/22 12/14/22 12/14/22 Range/Units 07:15 20:21 16:46 WBC 6.32 (4.8-10.8) K/ul RBC 5.01 (4.70-6.10) M/uL Hgb 15.1 (14.0-18.0) g/dl Hct 43.6 (42.0-52.0) % MCV 87.0 (80.0-100.0) fL MCH 30.1 (25.0-34.0) pg MCHC 34.6 (32.0-36.0) g/dL RDW Std Deviation 42.7 (36.4-46.3) fL RDW Coeff of Mauro 13.2 (11.5-14.5) % Plt Count 182 (130-400) K/uL MPV 11.3 (9.4-12.4) fL Sodium 129 L (136-145) mmol/L Potassium 4.4 (3.5-5.1) mmol/L Chloride 98 (98-107) mmol/L Carbon Dioxide 22 (21-32) mmol/L Anion Gap 9 (3-11) BUN 8 (6-23) mg/dl Creatinine 0.81 (0.6-1.4) mg/dl Est Cr Clr Drug Dosing 196.3 ml/min Est GFR ( Amer) 134.4 ml/min Est GFR (Non-Af Amer) 116.0 ml/min BUN/Creatinine Ratio 9.9 L (10-20) Glucose 107 H (70-99(Fasting)) mg/dl Osmolality (280-300) mOsm/kg Calcium 9.4 (8.6-10.3) mg/dl Total Bilirubin (0.2-1.0) mg/dl AST (13-39) U/L ALT (7-52) U/L Alkaline Phosphatase (34-104) U/L Total Protein (6.0-8.3) gm/dl Albumin (3.4-5.0) gm/dl Globulin (2.5-4.0) gm/dl Albumin/Globulin Ratio (0.9-2) Lipase (11-82) U/L TSH (0.300-4.500) uIu/ml Urine Color Urine Appearance (Clear) Urine pH (4.5-7.5) Ur Specific [place] (1.000-1.030) Urine Protein (Negative) Urine Glucose (UA) (Negative) Urine Ketones (Negative) Urine Blood (Negative) Urine Nitrite (Negative) Urine Bilirubin (Negative) Urine Urobilinogen (Negative) Ur Leukocyte Esterase (Negative) Urine Osmolality (500-800) mOsm/kg Ur Random Sodium mmol/L Nasal Screen MRSA (PCR) (Negative) SARS-CoV-2, RNA, NAAT NEGATIVE (NEGATIVE) 12/14/22 12/14/22 12/14/22 Range/Units 12:35 12:35 12:35 WBC (4.8-10.8) K/ul RBC (4.70-6.10) M/uL Hgb (14.0-18.0) g/dl Hct (42.0-52.0) % MCV (80.0-100.0) fL MCH (25.0-34.0) pg MCHC (32.0-36.0) g/dL RDW Std Deviation (36.4-46.3) fL RDW Coeff of Mauro (11.5-14.5) % Plt Count (130-400) K/uL MPV (9.4-12.4) fL Sodium (136-145) mmol/L Potassium (3.5-5.1) mmol/L Chloride (98-107) mmol/L Carbon Dioxide (21-32) mmol/L Anion Gap (3-11) BUN (6-23) mg/dl Creatinine (0.6-1.4) mg/dl Est Cr Clr Drug Dosing ml/min Est GFR ( Amer) ml/min Est GFR (Non-Af Amer) ml/min BUN/Creatinine Ratio (10-20) Glucose (70-99(Fasting)) mg/dl Osmolality (280-300) mOsm/kg Calcium (8.6-10.3) mg/dl Total Bilirubin (0.2-1.0) mg/dl AST (13-39) U/L ALT (7-52) U/L Alkaline Phosphatase (34-104) U/L Total Protein (6.0-8.3) gm/dl Albumin (3.4-5.0) gm/dl Globulin (2.5-4.0) gm/dl Albumin/Globulin Ratio (0.9-2) Lipase (11-82) U/L TSH (0.300-4.500) uIu/ml Urine Color Dark Yellow Urine Appearance Clear (Clear) Urine pH 5.5 (4.5-7.5) Ur Specific [place] 1.031 H (1.000-1.030) Urine Protein Negative (Negative) Urine Glucose (UA) Negative (Negative) Urine Ketones Negative (Negative) Urine Blood Negative (Negative) Urine Nitrite Negative (Negative) Urine Bilirubin 2+ H (Negative) Urine Urobilinogen Negative (Negative) Ur Leukocyte Esterase Negative (Negative) Urine Osmolality 435 L (500-800) mOsm/kg Ur Random Sodium 91 mmol/L Nasal Screen MRSA (PCR) (Negative) SARS-CoV-2, RNA, NAAT (NEGATIVE) 12/14/22 12/14/22 Range/Units 11:17 11:17 WBC (4.8-10.8) K/ul RBC (4.70-6.10) M/uL Hgb (14.0-18.0) g/dl Hct (42.0-52.0) % MCV (80.0-100.0) fL MCH (25.0-34.0) pg MCHC (32.0-36.0) g/dL RDW Std Deviation (36.4-46.3) fL RDW Coeff of Mauro (11.5-14.5) % Plt Count (130-400) K/uL MPV (9.4-12.4) fL Sodium (136-145) mmol/L Potassium (3.5-5.1) mmol/L Chloride (98-107) mmol/L Carbon Dioxide (21-32) mmol/L Anion Gap (3-11) BUN (6-23) mg/dl Creatinine (0.6-1.4) mg/dl Est Cr Clr Drug Dosing ml/min Est GFR ( Amer) ml/min Est GFR (Non-Af Amer) ml/min BUN/Creatinine Ratio (10-20) Glucose (70-99(Fasting)) mg/dl Osmolality 269 L (280-300) mOsm/kg Calcium (8.6-10.3) mg/dl Total Bilirubin 6.9 H (0.2-1.0) mg/dl AST 169 H (13-39) U/L ALT 554 H (7-52) U/L Alkaline Phosphatase 211 H (34-104) U/L Total Protein 8.2 (6.0-8.3) gm/dl Albumin 4.8 (3.4-5.0) gm/dl Globulin 3.4 (2.5-4.0) gm/dl Albumin/Globulin Ratio 1.4 (0.9-2) Lipase 15 (11-82) U/L TSH (0.300-4.500) uIu/ml Urine Color Urine Appearance (Clear) Urine pH (4.5-7.5) Ur Specific [place] (1.000-1.030) Urine Protein (Negative) Urine Glucose (UA) (Negative) Urine Ketones (Negative) Urine Blood (Negative) Urine Nitrite (Negative) Urine Bilirubin (Negative) Urine Urobilinogen (Negative) Ur Leukocyte Esterase (Negative) Urine Osmolality (500-800) mOsm/kg Ur Random Sodium mmol/L Nasal Screen MRSA (PCR) (Negative) SARS-CoV-2, RNA, NAAT (NEGATIVE) Diagnostic Findings CT OF THE ABDOMEN AND PELVIS WITH CONTRAST CLINICAL HISTORY: RUQ abdominal pain; jaundice COMPARISON STUDY: Right upper quadrant ultrasound performed earlier today. TECHNIQUE: Following IV administration of 120 mL of Optiray, axial images of the abdomen and pelvis were obtained from the lung bases to the proximal femurs. Images were reviewed in the axial, sagittal, and coronal planes. IV contrast was administered without complication. Automated exposure control was utilized for the study. A dose lowering technique was utilized adhering to the principles of ALARA. CT DOSE: 1648.11 mGy.cm FINDINGS: Lung bases are unremarkable. No pneumatosis, free air or portal venous gas is present. There is mild intra and extrahepatic biliary ductal dilatation. Common bile duct measures 8 mm in caliber. There are equivocal stones within the common bile duct. The gallbladder is mildly distended. There is no adjacent infiltration. Gallstones within the gallbladder on ultrasound are not evident by CT. There is no evidence for acute pancreatitis by CT. Spleen, adrenal glands and kidneys are normal. There is no hydronephrosis. The appendix is normal. There is no evidence for a bowel obstruction. IMPRESSION: 1. Mild biliary ductal dilatation. Possible common bile duct calculi. If indicated, MRCP could be obtained for confirmation. 2. Mild gallbladder distention without adjacent infiltration. Gallstones on ultrasound are not evident by CT. If suspicion for acute cholecystitis, a hepatobiliary scan could be obtained. 3. No CT evidence for acute pancreatitis. 4. Normal appendix. No bowel obstruction. No bowel wall thickening. ULTRASOUND RIGHT UPPER QUADRANT ABDOMEN CLINICAL HISTORY: Right upper quadrant abdominal pain. COMPARISON STUDY: No priors. TECHNIQUE: Real-time, grayscale, and color flow sonography of the right upper quadrant of the abdomen was performed. Images are reviewed in the transverse and longitudinal planes. FINDINGS: Liver: The liver is normal in size and echotexture. There is no intrahepatic biliary ductal dilatation. The main portal vein is patent. Gallbladder: There are numerous shadowing calcified gallstones. The gallbladder is mildly distended. The gallbladder wall appears mildly thickened and edematous. No pericholecystic fluid is seen. A sonographic Coronado's sign is reportedly absent. The common bile duct measures up to 0.9 cm in diameter. Pancreas: Not visualized due to overlying bowel gas. Right kidney: Survey images of the right kidney demonstrate normal size and echotexture. There is no hydronephrosis. Ascites: None. IMPRESSION: 1. Cholelithiasis within a distended and abnormal appearing gallbladder. Findings are suspicious for acute cholecystitis. Surgical assessment is advised. If clinically warranted a nuclear hepatobiliary scan could be considered for confirmation. 2. The common bile duct is dilated for age measuring up to 9 mm. 3. No intrahepatic biliary ductal dilatation is seen.
--- NOTE | 2022-12-15 13:45 | History & Physical Bridge Note ---
Date of Service December 15, 2022 History & Physical Bridge Note I have examined the patient, reviewed the History & Physical and in the interval since the performance of the History & Physical I have noted the following changes of clinical significance: no changes noted EUS/ERCP Patient was explained in detail regarding risks, benefits, limitations and alternatives of the above endoscopic procedure. Risks of intravenous sedation used for procedure were also explained. Risks include, but not limited to perforation, bleeding, infection, respiratory distress, cardiac arrest and . Patient is also aware about the possibility of missed lesion. Patient's questions were answered. The patient verbalized understanding the information and agreed to undergo the procedure.
[2022-12-15 13:46] LABS: BUN Creatinine Ratio 11.5 (10-20); Calcium 9.5 mg/dl (8.6-10.3); Creatinine Clr Calc Pharmacy 203.7 ml/min; Est GFR (African American) 136.5 ml/min; Est GFR (Non-African American) 117.8 ml/min
[2022-12-15 13:47] LABS: Albumin Level 4.5 gm/dl (3.4-5.0); BUN Creatinine Ratio 10.8 (10-20); Calcium 9.6 mg/dl (8.6-10.3); Creatinine Clr Calc Pharmacy 191.4 ml/min; Est GFR (African American) 133.1 ml/min; Est GFR (Non-African American) 114.8 ml/min; Phosphorus 2.3 mg/dl (2.5-4.9)
[2022-12-15] MEDS ORDERED: fentaNYL citrate PF 100 MCG/2 ML VIAL ONE ×2 (13:55→14:50)
[2022-12-15] MEDS ORDERED: ONDANSETRON INJ 2 MG/ML 2 ML VIAL IV PRN (14:00)
[2022-12-15] MEDS ORDERED: ePHEDrine sulfate 50 MG/ML AMP IV PRN (14:00)
[2022-12-15] MEDS ORDERED: fentaNYL citrate PF 100 MCG/2 ML VIAL IV PRN (14:00)
[2022-12-15] MEDS ORDERED: ATROPINE SULFATE 0.1 MG/ML 10ML SYR IV PRN (14:00)
--- NOTE | 2022-12-15 14:04 | Hospitalist Progress Note ---
Date of Service December 15, 2022 Assessment & Plan (1) Abdominal pain, RUQ: (2) Choledocholithiasis: (3) Transaminitis: Plan: 32-year-old obese man with history of hypertension who presents with intermittent right upper quadrant pain that started 2 weeks ago and jaundice Labs notable for sodium of 125, total bilirubin of 6.9, AST of 169, ALT of 554, alkaline phosphatase of 211. Gallbladder ultrasound noted cholelithiasis within a distended and abnormally appearing gallbladder, findings suspicious for acute cholecystitis. CBD dilated up to [address] noted mild biliary ductal dilatation, possible CBD calculi, mild gallbladder distention without adjacent infiltration. Patient has choledocholithiasis, obstructive jaundice. Low suspicion for cholecystitis Patient currently NPO awaiting ERCP by GI today. Will follow up ERCP Surgery plans for possible lap cholecystectomy on Sunday Monitor LFTs (4) Hyponatremia: Plan: Sodium was 125 on admission Does not have any previous labs to compare. Serum osm is 269. Uosm is 435. Marilou 91. TSH 1.265 Findings suggests SIADH. May also be mixed picture with jaundice and poor intake some days prior due to abd pain Nephrology eval noted Got IVF + lasix earlier today Continue to monitor Na (5) Hypertension: Plan: Controlled. Continue amlodipine Lisinopril held per Nephro at this time (6) Morbid obesity with BMI of 45.0-49.9, adult: Plan: Patient is morbidly obese. Lifestyle modification education. Need to lose weight. DVT prophylaxisSCD for today. I spent a total of 45 minutes coordinating, documenting and providing care for this patient excluding time spent in performance of separately billed services Admission and Anticipated Discharge Date Admission Date: December 14, 2022 Subjective Patient seen and examined in preop room Denied any abd pain, nausea, vomiting, diarrhea Denied fever, chills Denied cough, chest pain, SOB Denied dysuria, freq, hematuria Physical Exam Constitutional: + well hydrated and + obese; no acute distress ENMT: external ear and nose normal, oropharynx normal Respiratory: normal respiratory effort, lungs clear to auscultation Cardiovascular: Rate/Rhythm: regular rate and regular rhythm S1 S2 Gastrointestinal (Abdomen): normal bowel sounds, soft, nontender, no hepato splenomegaly Musculoskeletal: no cyanosis or clubbing, extremities motor strength 5/5 Skin: +jaundice Neurologic: PERRL, EOMI, accommodation nl, no face palsy, no dysarthria Psychiatric: A+Ox3, euthymic affect Results & Data Results & Data Vital Signs (Past 12 Hours) Vital Signs Temp Pulse Resp BP Pulse Ox O2 Del Method 12/15/22 12:56 37.2 C 74 20 136/67 96 Room Air 12/15/22 07:33 36.8 C 69 15 101/66 97 Room Air Laboratory Results Abnormal lab results 12/14/22 12/14/22 12/14/22 Range/Units 11:17 12:35 12:35 Sodium (136-145) mmol/L Chloride (98-107) mmol/L BUN/Creatinine Ratio (10-20) Glucose (70-99(Fasting)) mg/dl Osmolality 269 L (280-300) mOsm/kg Phosphorus (2.5-4.9) mg/dl Total Bilirubin (0.2-1.0) mg/dl AST (13-39) U/L ALT (7-52) U/L Alkaline Phosphatase (34-104) U/L Ur Specific [place] 1.031 H (1.000-1.030) Urine Bilirubin 2+ H (Negative) Urine Osmolality 435 L (500-800) mOsm/kg 12/14/22 12/15/22 12/15/22 Range/Units 20:21 07:15 13:03 Sodium 129 L 127 L 129 L (136-145) mmol/L Chloride 97 L 97 L (98-107) mmol/L BUN/Creatinine Ratio 9.9 L (10-20) Glucose 107 H 121 H 120 H (70-99(Fasting)) mg/dl Osmolality (280-300) mOsm/kg Phosphorus 2.3 L (2.5-4.9) mg/dl Total Bilirubin 8.4 H (0.2-1.0) mg/dl AST 161 H (13-39) U/L ALT 479 H (7-52) U/L Alkaline Phosphatase 187 H (34-104) U/L Ur Specific [place] (1.000-1.030) Urine Bilirubin (Negative) Urine Osmolality (500-800) mOsm/kg 12/15/22 Range/Units 13:03 Sodium 128 L (136-145) mmol/L Chloride 96 L (98-107) mmol/L BUN/Creatinine Ratio (10-20) Glucose 116 H (70-99(Fasting)) mg/dl Osmolality (280-300) mOsm/kg Phosphorus (2.5-4.9) mg/dl Total Bilirubin (0.2-1.0) mg/dl AST (13-39) U/L ALT (7-52) U/L Alkaline Phosphatase (34-104) U/L Ur Specific [place] (1.000-1.030) Urine Bilirubin (Negative) Urine Osmolality (500-800) mOsm/kg
[2022-12-15] MEDS ORDERED: INDOMETHACIN 50 MG SUPP PR ONE (14:08)
[2022-12-15] MEDS ORDERED: DexMEDEtomidine HCL IV 100 MCG/ML VIAL IV ONE (14:13)
[2022-12-15] MEDS ORDERED: ONDANSETRON INJ 2 MG/ML 2 ML VIAL ONE (14:49)
[2022-12-15] MEDS ORDERED: PROPOFOL IV EMULSION 10 MG/ML 20 ML VIAL IV ONE ×2 (14:49)
[2022-12-15] MEDS ORDERED: SUCCINYLCHOLINE CHLORIDE 20 MG/ML 10 ML VIAL IV ONE (14:49)
[2022-12-15] MEDS ORDERED: ROCURONIUM BROMIDE 10 MG/ML 5 ML VIAL IV ONE (14:49)
[2022-12-15] MEDS ORDERED: DEXAMETHASONE SOD INJ 4 MG/ML VIAL ONE (14:49)
[2022-12-15] MEDS ORDERED: LIDOCAINE 2% 2 ML VIAL/AMP(20MG/ML) INFIL ONE (14:50)
--- NOTE | 2022-12-15 14:58 | Operative Report ---
Post Operative Report Pre & Post Diagnosis Operation Date: 12/15/22 07:50 Pre-Op Diagnosis: JAUNDICE, RUQ PAIN I identified the patient and participated in the time-out.: Yes Procedure Operation Date: 12/15/22 07:50 Actual Procedures p Esophagogastroduodenoscopy(Not Applicable) - Sanya Shields MD s Endoscopic Ultrasonography Upper(Not Applicable) - Sanya Shields MD p Endoscopic Retrograde Cholangiopancreato(Not Applicable) - Sanya Shields MD Surgeon Sanya Shields MD Archeology Faculty Member None Estimated Blood Loss 0 Findings See Below (CBD stone and cholangitis, stent placed) Specimens None Description of Procedure EUS/ERCP I attest to the content of the Intraoperative Record and any orders documented therein. Any exceptions are noted below.
--- NOTE | 2022-12-15 15:05 | GI REPORT ---
Patient Name: Reinier Hummel Procedure Date: 12/15/2022 2:14 PM Date of : 1990 Admit Type: Inpatient Age: 32 Gender: Male Attending MD: Sanya Shields MD, Procedure: Upper GI endoscopy Providers: Sanya Shields MD Referring MD: Lana Merchant Md Indications: Abdominal pain Medicines: General Anesthesia Complications: No immediate complications. Estimated Blood Loss: Estimated blood loss: none. Procedure: Pre-Anesthesia Assessment: - Prior to the procedure, a History and Physical was performed, and patient medications, allergies and sensitivities were reviewed. The patient's tolerance of previous anesthesia was reviewed. - The risks and benefits of the procedure and the sedation options and risks were discussed with the patient. All questions were answered and informed consent was obtained. - Patient identification and proposed procedure were verified prior to the procedure by the physician and the nurse. The procedure was verified in the procedure room. - Pre-procedure physical examination revealed no contraindications to sedation. After obtaining informed consent, the endoscope was passed under direct vision. Throughout the procedure, the patient's blood pressure, pulse, and oxygen saturations were monitored continuously. The Endoscope was introduced through the mouth, and advanced to the second part of duodenum. The upper GI endoscopy was accomplished without difficulty. The patient tolerated the procedure well. Findings: The examined esophagus was normal. The entire examined stomach was normal. The duodenal bulb and second portion of the duodenum were normal. Impression: - Normal esophagus. - Normal stomach. - Normal duodenal bulb and second portion of the duodenum. - No specimens collected. Recommendation: - Perform an upper endoscopic ultrasound (UEUS) today. Sanya Shields MD 12/15/2022 3:05:15 PM This report has been signed electronically. Note Initiated On: 12/15/2022 2:14 PM Number of Addenda: 0 I attest to the content of the Intraoperative Record and orders documented therein, exceptions below {[id number]}
--- NOTE | 2022-12-15 15:07 | GI REPORT ---
Patient Name: Reinier Hummel Procedure Date: 12/15/2022 2:15 PM Date of : 1990 Admit Type: Inpatient Age: 32 Gender: Male Attending MD: Sanya Shields MD, Procedure: Upper EUS Providers: Sanya Shields MD Referring MD: Lana Merchant Md Indications: Suspected choledocholithiasis Medicines: General Anesthesia Complications: No immediate complications. Estimated Blood Loss: Estimated blood loss: none. Procedure: Pre-Anesthesia Assessment: - Prior to the procedure, a History and Physical was performed, and patient medications, allergies and sensitivities were reviewed. The patient's tolerance of previous anesthesia was reviewed. - The risks and benefits of the procedure and the sedation options and risks were discussed with the patient. All questions were answered and informed consent was obtained. - Patient identification and proposed procedure were verified prior to the procedure by the physician and the nurse. The procedure was verified in the procedure room. - Pre-procedure physical examination revealed no contraindications to sedation. After obtaining informed consent, the endoscope was passed under direct vision. Throughout the procedure, the patient's blood pressure, pulse, and oxygen saturations were monitored continuously. The Endosonoscope was introduced through the mouth, and advanced to the second part of duodenum. The upper EUS was accomplished without difficulty. The patient tolerated the procedure well. Findings: ENDOSONOGRAPHIC FINDING: : There was no sign of significant endosonographic abnormality in the ampulla. No masses were identified. There was dilation in the common bile duct which measured up to 10 mm. One stone was visualized endosonographically in the common bile duct. It was hyperechoic and characterized by shadowing. Multiple stones were visualized endosonographically in the gallbladder. They were hyperechoic and characterized by shadowing. There was no sign of significant endosonographic abnormality in the entire pancreas. The pancreatic duct measured up to 2 mm in diameter. Impression: - There was no sign of significant pathology in the ampulla. - There was dilation in the common bile duct which measured up to 10 mm. - One stone was visualized endosonographically in the common bile duct. - Multiple stones were visualized endosonographically in the gallbladder. - There was no sign of significant pathology in the entire pancreas. Recommendation: - Perform an ERCP today. Sanya Shields MD 12/15/2022 3:06:46 PM This report has been signed electronically. Note Initiated On: 12/15/2022 2:15 PM Number of Addenda: 0 I attest to the content of the Intraoperative Record and orders documented therein, exceptions below {[id number]}
--- NOTE | 2022-12-15 15:10 | GI REPORT ---
Patient Name: Reinier Hummel Procedure Date: 12/15/2022 2:32 PM Date of : 1990 Admit Type: Inpatient Age: 32 Gender: Male Attending MD: Sanya Shields MD, Procedure: ERCP Providers: Sanya Shields MD Referring MD: Lana Merchant Md Indications: For therapy of bile duct stone(s) Medicines: General Anesthesia Complications: No immediate complications. Estimated Blood Loss: Estimated blood loss: none. Procedure: Pre-Anesthesia Assessment: - Prior to the procedure, a History and Physical was performed, and patient medications, allergies and sensitivities were reviewed. The patient's tolerance of previous anesthesia was reviewed. - The risks and benefits of the procedure and the sedation options and risks were discussed with the patient. All questions were answered and informed consent was obtained. - Patient identification and proposed procedure were verified prior to the procedure by the physician and the nurse. The procedure was verified in the procedure room. - Pre-procedure physical examination revealed no contraindications to sedation. After obtaining informed consent, the scope was passed under direct vision. Throughout the procedure, the patient's blood pressure, pulse, and oxygen saturations were monitored continuously. The Duodenoscope was introduced through the mouth, and advanced to the duodenum and used to inject contrast into the bile duct. The ERCP was accomplished without difficulty. The patient tolerated the procedure well. Findings: The cilnical scientist film was normal. The esophagus was successfully intubated under direct vision. The scope was advanced to a normal major papilla in the descending duodenum without detailed examination of the pharynx, larynx and associated structures, and upper GI tract. The upper GI tract was grossly normal. A 0.025 inch x 270 cm angled Visiglide wire was passed into the biliary tree. The short-nosed traction sphincterotome was passed over the guidewire and the bile duct was then deeply cannulated. Contrast was injected. I personally interpreted the bile duct images. Ductal flow of contrast was adequate. Image quality was adequate. Contrast extended to the main bile duct. Opacification of the main bile duct was successful. The maximum diameter of the ducts was 10 mm. Biliary sphincterotomy was made with a monofilament traction (standard) sphincterotome using ERBE electrocautery. There was no post-sphincterotomy bleeding. The biliary tree was swept with a 12 mm balloon starting at the bifurcation. Sludge was swept from the duct. One stone was removed. No stones remained. Pus was swept from the duct. One 10 Fr by 9 cm plastic biliary stent with a single external flap and a single internal flap was placed into the common bile duct. Bile flowed through the stent. The stent was in good position. Indomethacin 100 mg was given via suppository to decrease the risk of post-ERCP pancreatitis (PEP). Impression: - Choledocholithiasis was found. Complete removal was accomplished by biliary sphincterotomy and balloon extraction. - One plastic biliary stent was placed into the common bile duct. Recommendation: - [facility]. - Repeat ERCP in 3 months to remove stent. - Surgery follow up for cholecystectomy. Sanya Shields MD 12/15/2022 3:09:39 PM This report has been signed electronically. Note Initiated On: 12/15/2022 2:32 PM Number of Addenda: 0 I attest to the content of the Intraoperative Record and orders documented therein, exceptions below {[id number]}
--- NOTE | 2022-12-15 15:58 | Anesthesiology Progress Note ---
Date of Service December 15, 2022 Anesthesia Post Procedure Vital Signs Vital Signs: Temp Pulse Pulse Pulse Resp BP BP 12/15/22 15:43 36.7 C 70 18 128/70 12/15/22 15:30 36.7 C 70 16 117/65 12/15/22 15:20 66 18 125/63 12/15/22 15:08 36 C L 84 20 119/62 12/15/22 12:56 37.2 C 74 20 136/67 12/15/22 07:33 36.8 C 69 15 101/66 12/14/22 19:50 37.2 C 73 18 115/79 12/14/22 19:32 36.8 C 66 16 163/76 H 12/14/22 19:03 61 12/14/22 17:23 78 18 110/61 12/14/22 16:00 64 Pulse Ox O2 Del Method O2 Flow Rate 12/15/22 15:43 95 Room Air 12/15/22 15:30 94 Room Air 12/15/22 15:20 98 Oxymask 5 12/15/22 15:08 96 Oxymask 7 12/15/22 12:56 96 Room Air 12/15/22 07:33 97 Room Air 12/14/22 19:50 99 Room Air 12/14/22 19:32 98 Room Air 12/14/22 19:03 12/14/22 17:23 100 Room Air 12/14/22 16:00 100 Transfer of Care Handoff Completed per policy Notes Mental Status: alert / awake / arousable and participated in evaluation Patient Amnestic to Procedure: Yes Nausea / Vomiting: adequately controlled Pain: adequately controlled Airway Patency, RR, SpO2: stable & adequate BP & HR: stable & adequate Hydration State: stable & adequate Anesthetic Complications: no major complications apparent and Pt Satisfied with anesthetic care
--- NOTE | 2022-12-15 17:13 | Fluoroscopy Report ---
[place] ERCP biliary ductal CLINICAL HISTORY: EXPLORE DUCTS COMPARISON STUDY: CT 12/14/2022 FLUOROSCOPY TIME: 38.9 seconds FLUOROSCOPY IMAGES: 6 EXPOSURE DOSE: 33.8 mGy FINDINGS: Endoscope within the duodenum. Cannulation of the common bile duct with balloon sweep. The last images demonstrate placement of a common bile duct stent which appears to be in satisfactory pos itioning. IMPRESSION: Fluoroscopic assistance as above. ACT 112: Negative or not required by law. Electronically signed by: Aayush Patel M.D. 12/15/2022 5:11 PM
[2022-12-15 18:35] LABS: BUN Creatinine Ratio 12.8 (10-20); Calcium 9.6 mg/dl (8.6-10.3); Creatinine Clr Calc Pharmacy 184.7 ml/min; Est GFR (African American) 131.1 ml/min; Est GFR (Non-African American) 113.1 ml/min; Potassium 4.1 mmol/L (3.5-5.1)
--- NOTE | 2022-12-16 00:16 | Electrocardiogram Report ---
Test Reason : Blood Pressure : / mmHG Vent. Rate : 070 BPM Atrial Rate : 070 BPM P-R Int : 158 ms QRS Dur : 100 ms QT Int : 410 ms P-R-T Axes : 055 092 036 degrees QTc Int : 442 ms Normal sinus rhythm Rightward axis Low voltage QRS Borderline ECG No previous ECGs available Confirmed by Cruzito Barth ([id number]) on 12/16/2022 12:15:58 AM Referred By: Olga SCI Confirmed By:Cruzito Barth
[2022-12-16 07:54] LABS: Hematocrit (blood only) 42.5 % (42.0-52.0); Hemoglobin 14.7 g/dl (14.0-18.0); Mean Corpuscular Hemoglobin 30.2 pg (25.0-34.0); Mean Corpuscular Hgb Conc 34.6 g/dL (32.0-36.0); Mean Corpuscular Volume 87.4 fL (80.0-100.0); Mean Platelet Volume 10.7 fL (9.4-12.4); Platelet Count 225 K/uL (130-400); RDW Coefficient of Variation 13.1 % (11.5-14.5); RDW Standard Deviation 41.8 fL (36.4-46.3); Red Blood Count 4.86 M/uL (4.70-6.10); White Blood Count 12.15 K/ul (4.8-10.8)
[2022-12-16 08:03] LABS: Albumin Globulin Ratio 1.4 (0.9-2); Albumin Level 4.5 gm/dl (3.4-5.0); BUN Creatinine Ratio 23.8 (10-20); Bilirubin,Total 3.6 mg/dl (0.2-1.0); Calcium 9.8 mg/dl (8.6-10.3); Creatinine Clr Calc Pharmacy 252.1 ml/min; Est GFR (Non-African American) 128.6 ml/min; Globulin 3.3 gm/dl (2.5-4.0); Phosphorus 3.7 mg/dl (2.5-4.9); Potassium 4.3 mmol/L (3.5-5.1); Total Protein 7.8 gm/dl (6.0-8.3)
[2022-12-16] MEDS: ATORVASTATIN 20 MG TAB PO SCH (08:25)
[2022-12-16] MEDS: amLODIPine BESYLATE 5 MG TAB PO SCH (08:25)
[2022-12-16] MEDS: SUCRALFATE 1 GM TAB PO SCH ×3 (08:25→19:26)
[2022-12-16] MEDS: UREA (UREA-NA) 15 GM PACK PO SCH ×2 (09:51→19:26)
--- NOTE | 2022-12-16 10:30 | Nephrology Progress Note ---
Date of Service December 16, 2022 Assessment & Plan (1) Hyponatremia: Plan: Based on the physical exam history and the urine test the etiology of hyponatremia appears to be a combination of underlying SIADH likely triggered by the persistent nausea he has had for the last few days as well as low solute diet. Sodium is 126 today. Admission sodium was 125. -Start urea 15 g twice daily -Fluid limit 1.2 L daily. -Daily BMP Case was discussed with hospitalist (2) Transaminitis: Plan: Abnormal LFTs consistent with obstructive pattern related with gallstone. GI on board. Patient s/p ERCP. Admission and Anticipated Discharge Date Admission Date: December 14, 2022 Subjective Seen for hyponatremia. He feels better today. He had the ERCP yesterday. He is on liquid diet. Review of Systems Review of Systems: All other systems were reviewed and negative except as noted in HPI Physical Exam Physical Exam: General exam: Appears comfortable, no acute distress HEENT: Pupils are equal and reactive to light Neck: No JVD, neck is supple trachea is midline Respiratory system: Clear breath sounds bilaterally. Gastrointestinal: Abdomen is soft, non distended, non tender, bowel sounds are present CVS: Regular rate and rhythm. No murmurs, rubs or gallops Musculoskeletal: No joint or muscle tenderness Extremities: Non tender, no edema, peripheral pulses are present Neuro: Oriented, no tremors, no focal neurological deficits Skin: No rashes Results & Data Vital Signs (Past 12 Hours) Vital Signs Temp Pulse Resp BP Pulse Ox O2 Del Method 12/16/22 07:32 36.8 C 70 16 121/75 93 Room Air Laboratory Results 12/16/22 07:09 12/15/22 12/16/22 12/16/22 13:03 07:09 07:09 WBC 12.15 H RBC 4.86 MCV 87.4 MCH 30.2 MCHC 34.6 RDW Std Deviation 41.8 RDW Coeff of Mauro 13.1 Plt Count 225 MPV 10.7 Phosphorus 2.3 L 3.7 D Albumin 4.5 4.5
--- NOTE | 2022-12-16 11:10 | Surgery Progress Note ---
Date of Service December 16, 2022 Assessment & Plan (1) Choledocholithiasis: Plan: s/p ERCP with stone removal LFTs trending down will plan lap reyes in AM consent obtained NPO past MN Admission and Anticipated Discharge Date Admission Date: December 14, 2022 Subjective pain controlled s/p ERCP with stent liquids Review of Systems Constitutional: no fever and no chills Eyes: no problem reported Respiratory: no cough and no dyspnea Cardiovascular: no chest pain Gastrointestinal: no abdominal pain, no nausea and no vomiting Genitourinary: no dysuria Musculoskeletal: no back pain Neurologic: no localized weakness and no generalized weakness Physical Exam Constitutional: WD/WN, vitals as above Eyes: PERRL; sclerae not anicteric Neck: trachea midline Respiratory: normal respiratory effort, lungs clear to auscultation Cardiovascular: RRR, no murmur, no edema Gastrointestinal (Abdomen): Inspection/Auscultation: abdomen normal to inspection and normal bowel sounds; abdomen not distended Percussion/Palpation: abdomen soft; abdomen nontender, no guarding and abdomen not rigid Musculoskeletal: Head/Neck/Chest: normocephalic and head atraumatic Skin: no rashes, warm and dry Results & Data Vital Signs (Past 12 Hours) Vital Signs Temp Pulse Resp BP Pulse Ox O2 Del Method 12/16/22 07:32 36.8 C 70 16 121/75 93 Room Air
--- NOTE | 2022-12-16 11:20 | Hospitalist Progress Note ---
Date of Service December 16, 2022 Assessment & Plan (1) Abdominal pain, RUQ: (2) Choledocholithiasis: (3) Transaminitis: Plan: 32-year-old obese man with history of hypertension who presents with intermittent right upper quadrant pain that started 2 weeks ago and jaundice Labs notable for sodium of 125, total bilirubin of 6.9, AST of 169, ALT of 554, alkaline phosphatase of 211. Gallbladder ultrasound noted cholelithiasis within a distended and abnormally appearing gallbladder, findings suspicious for acute cholecystitis. CBD dilated up to [address] noted mild biliary ductal dilatation, possible CBD calculi, mild gallbladder distention without adjacent infiltration. Patient has choledocholithiasis, obstructive jaundice. Low suspicion for cholecystitis S/P ERCP on 12/15/22 Had choledocholithiasis s/p stent Will need follow up with GI for repeat ERCP in 3 months Surgery plans for possible lap cholecystectomy tomorrow. Keep NPO past midnight Tbil 6.9-->8.4-->3.4 AST 169-->161-->113 ALT 554-->479-->419 Alk P 211-->187-->179 (4) Hyponatremia: Plan: Sodium was 125 on admission Does not have any previous labs to compare. Serum osm is 269. Uosm is 435. Marilou 91. TSH 1.265 Findings suggests SIADH. May also be mixed picture with jaundice and poor intake some days prior due to abd pain Nephrology eval noted Started on urea Fluid restriction (5) Hypertension: Plan: Controlled. Continue amlodipine Lisinopril held per Nephro at this time (6) Morbid obesity with BMI of 45.0-49.9, adult: Plan: Patient is morbidly obese. Lifestyle modification education. DVT prophylaxisSCD . I spent a total of 40 minutes coordinating, documenting and providing care for this patient excluding time spent in performance of separately billed services Admission and Anticipated Discharge Date Admission Date: December 14, 2022 Subjective Patient seen and examined Denied any complaints today Denied any abd pain, nausea, vomiting, diarrhea, fever, chills Denied cough, chest pain, SOB Denied dysuria, freq, hematuria Physical Exam Constitutional: + well hydrated and + obese; no acute distress ENMT: external ear and nose normal, oropharynx normal Respiratory: normal respiratory effort, lungs clear to auscultation Cardiovascular: Rate/Rhythm: regular rate and regular rhythm S1 S2 Gastrointestinal (Abdomen): normal bowel sounds, soft, nontender, no hepatosplenomegaly Musculoskeletal: no cyanosis or clubbing, extremities motor strength 5/5 Neurologic: PERRL, EOMI, accommodation nl, no face palsy, no dysarthria Psychiatric: A+Ox3, euthymic affect Results & Data Results & Data Vital Signs (Past 12 Hours) Vital Signs Temp Pulse Resp BP Pulse Ox O2 Del Method 12/16/22 07:32 36.8 C 70 16 121/75 93 Room Air Laboratory Results Abnormal lab results 12/15/22 12/16/22 12/16/22 Range/Units 17:48 07:09 07:09 WBC 12.15 H (4.8-10.8) K/ul Sodium 127 L 126 L (136-145) mmol/L Chloride 95 L 95 L (98-107) mmol/L BUN/Creatinine Ratio 23.8 H (10-20) Glucose 167 H 124 H (70-99(Fasting)) mg/dl Total Bilirubin 3.6 H D (0.2-1.0) mg/dl AST 113 H (13-39) U/L ALT 419 H (7-52) U/L Alkaline Phosphatase 179 H (34-104) U/L
[2022-12-16] MEDS: SODIUM CHLORIDE 1 GM TABLET PO SCH ×3 (11:34→19:26)
[2022-12-17] MEDS ORDERED: ceFAZolin 2000MG 2,000 MG/15 ML SYR IV SCH (06:00)
[2022-12-17 06:24] LABS: Hematocrit (blood only) 46.2 % (42.0-52.0); Hemoglobin 15.5 g/dl (14.0-18.0); Mean Corpuscular Hemoglobin 30.2 pg (25.0-34.0); Mean Corpuscular Hgb Conc 33.5 g/dL (32.0-36.0); Mean Corpuscular Volume 90.1 fL (80.0-100.0); Mean Platelet Volume 10.8 fL (9.4-12.4); Platelet Count 222 K/uL (130-400); RDW Coefficient of Variation 13.1 % (11.5-14.5); RDW Standard Deviation 43.2 fL (36.4-46.3); Red Blood Count 5.13 M/uL (4.70-6.10); White Blood Count 10.52 K/ul (4.8-10.8)
[2022-12-17 06:37] LABS: Albumin Globulin Ratio 1.4 (0.9-2); Albumin Level 4.6 gm/dl (3.4-5.0); BUN Creatinine Ratio 31.2 (10-20); Bilirubin,Total 3.1 mg/dl (0.2-1.0); Calcium 10.3 mg/dl (8.6-10.3); Creatinine Clr Calc Pharmacy 206.3 ml/min; Est GFR (African American) 137.2 ml/min; Est GFR (Non-African American) 118.4 ml/min; Globulin 3.4 gm/dl (2.5-4.0); Phosphorus 4.2 mg/dl (2.5-4.9); Potassium 4.6 mmol/L (3.5-5.1)
[2022-12-17] MEDS ORDERED: PROPOFOL IV EMULSION 10 MG/ML 20 ML VIAL IV ONE (07:07)
[2022-12-17] MEDS ORDERED: SUCCINYLCHOLINE CHLORIDE 20 MG/ML 10 ML VIAL IV ONE (07:07)
[2022-12-17] MEDS ORDERED: LIDOCAINE 2% 2 ML VIAL/AMP(20MG/ML) INFIL ONE (07:07)
[2022-12-17] MEDS ORDERED: fentaNYL citrate PF 100 MCG/2 ML VIAL ONE (07:07)
[2022-12-17] MEDS ORDERED: SUGAMMADEX SODIUM 200 MG/2 ML VIAL IV ONE (07:07)
[2022-12-17] MEDS ORDERED: MIDAZOLAM HCL 1 MG/ML 2ML VIAL ONE (07:07)
[2022-12-17] MEDS ORDERED: ROCURONIUM BROMIDE 10 MG/ML 5 ML VIAL IV ONE (07:07)
[2022-12-17] MEDS ORDERED: BUPIVACAINE/EPINEPHRINE 0.5% MPF 1:200,000 30 ML VIAL ONE (07:15)
--- NOTE | 2022-12-17 07:36 | History & Physical Bridge Note ---
Date of Service December 17, 2022 History & Physical Bridge Note I have examined the patient, reviewed the History & Physical and in the interval since the performance of the History & Physical I have noted the following changes of clinical significance: no changes noted
--- NOTE | 2022-12-17 08:22 | Anesthesiology Consultation ---
Date of Service December 17, 2022 Assessment & Plan Chart Review Chart Review: Acceptable Risk for Surgery and Patient NOT seen in Pre Admission Testing Consults Requested none ASA ASA3 Proposed Anesthesia Anesthesia Type: General History Surgery Operation Date: 12/15/22 07:50 Proposed Procedures p Endoscopic Retrograde Cholangiopancreato - Sanya Shields MD Operation Date: 12/17/22 07:30 Proposed Procedures p Laparoscopic Cholecystectomy - Frandy Henry MD Height/Weight Height: 5 ft 11 in Weight: 156.8 kg Allergies Allergy/AdvReac Type Severity Reaction Status Date / Time Fish Containing Products Allergy Unknown ON SCI Verified 12/14/22 16:20 [facility] MED LIST Medications Home Medications Medication Instructions Recorded Confirmed Last Taken amlodipine 5 mg tablet 5 mg PO DAILY 12/14/22 12/14/22 Unknown atorvastatin 20 mg tablet 20 mg PO DAILY 12/14/22 12/14/22 Unknown lisinopril 20 mg tablet 20 mg PO BID 12/14/22 12/14/22 Unknown sucralfate 1 gram tablet 1 g PO TID 12/14/22 12/14/22 Unknown Active Medications Generic Name Dose Route Start Last Admin Trade Name Freq PRN Reason Stop Dose Admin Amlodipine Besylate 5 mg 12/15/22 09:00 12/16/22 08:25 Amlodipine Besylate 5 Mg Tab PO 01/14/23 08:59 5 mg DAILY JOSE Administration Atorvastatin Calcium 20 mg 12/15/22 09:00 12/16/22 08:25 Atorvastatin 20 Mg Tab PO 01/14/23 08:59 20 mg DAILY JOSE Administration Sodium Chloride 1 gm 12/16/22 10:35 12/16/22 19:26 Sodium Chloride 1 Gm Tablet PO 01/15/23 10:34 1 gm TID JOSE Administration Sucralfate 1 gm 12/14/22 21:00 12/16/22 19:26 Sucralfate 1 Gm Tab PO 01/13/23 20:59 1 gm TID JOSE Administration Urea 15 gm 12/16/22 09:45 12/16/22 19:26 Urea (Urea-Na) 15 Gm Pack PO 01/15/23 09:44 15 gm BID JOSE Administration NPO Date Last Intake of Fluids: 12/14/22 Time Last Intake of Fluids: 21:00 Date Last Intake of Solids: 12/14/22 Time Last Intake of Solids: 06:00 Past Medical History Medical History Choledocholithiasis Encounter for pre-operative examination Hypertension Hyponatremia Morbid obesity with BMI of 45.0-49.9, adult Transaminitis Exercise / Class Metabolic Activity II 4-5 Yardwork/Stairs/Walk up hill Past Anesthesia History No Hx of Anesthesia Complications and No Family Hx of Anesthesia Complications History of PONV No Hx of PONV and No Hx of Motion Sickness Social History Smoking Status: Current every day smoker tobacco type: e-cigarettes Hx Alcohol Use: No Physical Exam Vital Signs Last Vital Signs Temp 36.7 C 12/16/22 20:13 Pulse 67 12/16/22 20:13 Resp 20 12/16/22 20:13 BP 111/73 12/16/22 20:13 Pulse Ox 98 12/16/22 20:13 O2 Del Method Room Air 12/16/22 20:13 O2 Flow Rate 5 12/15/22 15:20 Testing Laboratory Results 12/17/22 05:57 12/17/22 05:57 Urine Color Dark Yellow 12/14/22 12:35 Urine Appearance Clear (Clear) 12/14/22 12:35 Urine pH 5.5 (4.5-7.5) 12/14/22 12:35 Ur Specific Hudson 1.031 (1.000-1.030) H 12/14/22 12:35 Urine Protein Negative (Negative) 12/14/22 12:35 Urine Glucose (UA) Negative (Negative) 12/14/22 12:35 Urine Ketones Negative (Negative) 12/14/22 12:35 Urine Nitrite Negative (Negative) 12/14/22 12:35 Ur Leukocyte Esterase Negative (Negative) 12/14/22 12:35 Electrocardiogram Date: 12/15/22 Findings: + NSR @ (@ 70;RAD;low voltage QRS)
[2022-12-17] MEDS ORDERED: PROMETHAZINE HCL 12.5 MG in SODIUM CHLORIDE 0.9% 50 ML IV PRN (08:55)
[2022-12-17] MEDS ORDERED: ATROPINE SULFATE 0.1 MG/ML 10ML SYR IV PRN (08:55)
[2022-12-17] MEDS ORDERED: FLUMAZENIL 0.1 MG/1 ML 10 ML VIAL IV PRN (08:55)
[2022-12-17] MEDS ORDERED: fentaNYL citrate PF 100 MCG/2 ML VIAL IV PRN (08:55)
[2022-12-17] MEDS ORDERED: ONDANSETRON INJ 2 MG/ML 2 ML VIAL IV PRN (08:55)
[2022-12-17] MEDS ORDERED: ePHEDrine sulfate 50 MG/ML AMP IV PRN (08:55)
[2022-12-17] MEDS ORDERED: LABETALOL HCL IV 5 MG/ML 20ML IV PRN (08:55)
[2022-12-17] MEDS ORDERED: NALOXONE HCL 0.4 MG/1 ML VIAL/CARP IV PRN (08:55)
[2022-12-17] MEDS ORDERED: ePHEDrine sulfate 50 MG/ML AMP ONE (09:35)
[2022-12-17] MEDS ORDERED: ceFAZolin 330 MG/ML 1 GM VIAL ONE (09:38)
[2022-12-17] MEDS ORDERED: ceFAZolin 330 MG/ML 1 GM VIAL IV ONE (09:42)
[2022-12-17] MEDS ORDERED: KETOROLAC 30 MG/ML VIAL ONE (09:44)
--- NOTE | 2022-12-17 10:10 | Operative Report ---
Post Operative Report Pre & Post Diagnosis Operation Date: 12/17/22 07:30 Pre-Op Diagnosis: Choledocholithiasis Post-Op Diagnosis: Choledocholithiasis I identified the patient and participated in the time-out.: Yes Procedure Operation Date: 12/17/22 07:30 Actual Procedures p Laparoscopic Cholecystectomy(Not Applicable) - Frandy Henry MD Surgeon Frandy Henry MD Warehouse Distribution Associate None Estimated Blood Loss 20 Findings Consistent with Post-Op Diagnosis Specimens gallbladder Description of Procedure see report I attest to the content of the Intraoperative Record and any orders documented therein. Any exceptions are noted below.
--- NOTE | 2022-12-17 10:16 | Operative Report ---
Post Operative Report Pre & Post Diagnosis Operation Date: 12/17/22 07:30 Pre-Op Diagnosis: Choledocholithiasis Post-Op Diagnosis: Choledocholithiasis I identified the patient and participated in the time-out.: Yes Procedure Operation Date: 12/17/22 07:30 Actual Procedures p Laparoscopic Cholecystectomy(Not Applicable) - Frandy Henry MD Surgeon Frandy Henry MD Snack Steward None Estimated Blood Loss 20 Findings Consistent with Post-Op Diagnosis acute cholecystitis Specimens gallbladder Drains none Anesthesia Type General Complications none Indications This is a 32-year-old male who was admitted with acute cholecystitis and common bile duct stones. He underwent an ERCP to remove his stones and now presents for laparoscopic cholecystectomy. When we went over the risks of an open procedure, retained common bile duct stones, bile leak, and common bile duct injury. He understands all this and wishes to proceed. Description of Procedure The patient was taken the OR and underwent excellent general endotracheal anesthesia. Their abdomen is prepped and draped normal sterile fashion. Transverse supraumbilical incision was made and dissection was taken down to identify the anterior fascia. Two Vicryl's were placed on either side of the midline and his midline was then incised. The peritoneal cavity was entered b luntly with Columba clamp. A 12mm Martínez trocar was then inserted and secured. Good pneumoperitoneum was achieved to 15 mmHg pressure. Patient is placed in head up and rolled to the left. A 11mm subxiphoid and two 5mm lateral ports were placed in the normal fashion. The gallbladder was identified was acutely inflamed. The gallbladder was grasped by the the fundus of the gallbladder and was retracted superiorly. The neck of the gallbladder was grasped and then retracted laterally. This splayed open the triangle of Calot. Attention was then to taking down the peritoneal attachments to identify the cystic duct and cystic artery. Once these were skeletonized and a medial and lateral window was created between the gallbladder fossa and the duct, thereby ensuring the critical view. Three clips were then placed distally on cystic duct 1 proximally the cystic duct was transected. Two clips were then placed approximately cystic artery one distally, the cystic artery was transected. An electrocautery hook was then used to move the gallbladder off the gallbladder fossa. There was no bile spillage. The gallbladder was then placed in Endobag and brought out through the supraumbilical incision. The pneumoperitoneum was re-established and abdomen was irrigated out until the suction fluid was clear. There were some areas on the gallbladder fossa which were raw and were cauterize d. The ports were then removed and the abdomen decompressed. The fascia of the supraumbilical incision was closed with Vicryls. 0.5% Marcaine with epinephrine local was to create a local field block. Interrupted Vicryl was used to close the skin and a nylon was used to close the two lateral incisions. Steri-Strips and benzoin were used to reinforce the incisions. Sterile dressings were applied. Patient tolerated the procedure without complication and sent to the postop recovery period of observation. He will then be sent to the floor for the rest of his care. I attest to the content of the Intraoperative Record and any orders documented therein. Any exceptions are noted below.
[2022-12-17] MEDS ORDERED: MoRPHine SULFATE 4 MG/ML 1 ML CARP\\VIAL IV PRN (10:55)
[2022-12-17] MEDS ORDERED: oxyCODONE/ACETAMINOPHEN 5mg/325mg TAB PO PRN ×2 (10:55)
[2022-12-17] MEDS ORDERED: MoRPHine SULFATE 2 MG/ML CARP IV PRN (10:55)
[2022-12-17] MEDS: amLODIPine BESYLATE 5 MG TAB PO SCH (11:35)
[2022-12-17] MEDS: SODIUM CHLORIDE 1 GM TABLET PO SCH ×3 (11:36→20:53)
[2022-12-17] MEDS: UREA (UREA-NA) 15 GM PACK PO SCH ×2 (11:36→20:53)
[2022-12-17] MEDS: SUCRALFATE 1 GM TAB PO SCH ×3 (11:36→20:53)
[2022-12-17] MEDS: ATORVASTATIN 20 MG TAB PO SCH (11:45)
--- NOTE | 2022-12-17 12:08 | Anesthesiology Progress Note ---
Date of Service December 17, 2022 Anesthesia Post Procedure Vital Signs Vital Signs: Temp Pulse Pulse Pulse Pulse Resp BP 12/17/22 11:25 37 C 91 H 18 127/84 12/17/22 10:55 37 C 87 20 127/85 12/17/22 10:40 36.5 C 90 15 134/79 12/17/22 10:30 91 H 18 127/85 12/17/22 10:20 84 20 129/97 12/17/22 10:10 36.4 C L 94 H 18 137/89 12/17/22 08:49 37 C 73 18 111/79 12/16/22 20:13 36.7 C 67 20 111/73 12/16/22 14:25 36.8 C 68 16 143/69 H Pulse Ox O2 Del Method O2 Flow Rate 12/17/22 11:25 92 Room Air 12/17/22 10:55 93 Room Air 12/17/22 10:40 94 Room Air 12/17/22 10:30 95 Room Air 12/17/22 10:20 98 Oxymask 4 12/17/22 10:10 98 Oxymask 6 12/17/22 08:49 96 Room Air 12/16/22 20:13 98 Room Air 12/16/22 14:25 95 Room Air Pain Intensity Abdomen: Pain Intensity: 3 Transfer of Care Handoff Completed per policy Notes Mental Status: alert / awake / arousable Patient Amnestic to Procedure: Yes Nausea / Vomiting: adequately controlled Pain: adequately controlled Airway Patency, RR, SpO2: stable & adequate BP & HR: stable & adequate Hydration State: stable & adequate Anesthetic Complications: no major complications apparent
--- NOTE | 2022-12-17 12:13 | Hospitalist Progress Note ---
Date of Service December 17, 2022 Assessment & Plan (1) Abdominal pain, RUQ: (2) Choledocholithiasis: (3) Transaminitis: Plan: 32-year-old obese man with history of hypertension who presents with intermittent right upper quadrant pain that started 2 weeks ago and jaundice Labs notable for sodium of 125, total bilirubin of 6.9, AST of 169, ALT of 554, alkaline phosphatase of 211. Gallbladder ultrasound noted cholelithiasis within a distended and abnormally appearing gallbladder, findings suspicious for acute cholecystitis. CBD dilated up to [address] noted mild biliary ductal dilatation, possible CBD calculi, mild gallbladder distention without adjacent infiltration. Patient has choledocholithiasis, obstructive jaundice. Low suspicion for cholecystitis S/P ERCP on 12/15/22 Had choledocholithiasis s/p stent Will need follow up with GI for repeat ERCP in 3 months S/P lap cholecystectomy today On liquid diet for now. Plan to advance by tomorrow LFTs trending down Tbil 6.9-->8.4-->>3.1 AST 169-->161-->>116 ALT 554-->479-->>392 Alk P 211-->187-->>162 (4) Hyponatremia: Plan: Sodium was 125 on admission Does not have any previous labs to compare. Serum osm is 269. Uosm is 435. Marilou 91. TSH 1.265 Findings suggests SIADH. May also be mixed picture with jaundice and poor intake some days prior due to abd pain Nephrology eval noted Continue urea and fluid restriction. Na improving, up to 13 (5) Hypertension: Plan: Controlled. Continue amlodipine Resume lisinopril at 20mg daily in AM (6) Morbid obesity with BMI of 45.0-49.9, adult: Plan: Patient is morbidly obese. Lifestyle modification education. DVT prophylaxisSCD . I spent a total of 45 minutes coordinating, documenting and providing care for this patient excluding time spent in performance of separately billed services Admission and Anticipated Discharge Date Admission Date: December 14, 2022 Subjective Patient seen and examined on return from OR Denies any abd pain at this time Denies any nausea, vomiting, cough, chest pain, SOB, dysuria, freq, urgency Physical Exam Constitutional: + well hydrated and + obese; no acute distress ENMT: external ear and nose normal, oropharynx normal Respiratory: normal respiratory effort, lungs clear to auscultation Cardiovascular: Rate/Rhythm: regular rate and regular rhythm S1 S2 Gastrointestinal (Abdomen): normal bowel sounds, soft, nontender, no hepatosplenomegaly Dressing over surgical site Musculoskeletal: no cyanosis or clubbing, extremities motor strength 5/5 Neurologic: PERRL, EOMI, accommodation nl, no face palsy, no dysarthria Psychiatric: A+Ox3, euthymic affect Results & Data Results & Data Vital Signs (Past 12 Hours) Vital Signs Temp Pulse Pulse Pulse Resp BP Pulse Ox 12/17/22 11:25 37 C 91 H 18 127/84 92 12/17/22 10:55 37 C 87 20 127/85 93 12/17/22 10:40 36.5 C 90 15 134/79 94 12/17/22 10:30 91 H 18 127/85 95 12/17/22 10:20 84 20 129/97 98 12/17/22 10:10 36.4 C L 94 H 18 137/89 98 12/17/22 08:49 37 C 73 18 111/79 96 O2 Del Method O2 Flow Rate 12/17/22 11:25 Room Air 12/17/22 10:55 Room Air 12/17/22 10:40 Room Air 12/17/22 10:30 Room Air 12/17/22 10:20 Oxymask 4 12/17/22 10:10 Oxymask 6 12/17/22 08:49 Room Air Laboratory Results Abnormal lab results 12/17/22 Range/Units 05:57 Sodium 131 L (136-145) mmol/L Chloride 96 L (98-107) mmol/L BUN 24 H (6-23) mg/dl BUN/Creatinine Ratio 31.2 H (10-20) Glucose 109 H (70-99(Fasting)) mg/dl Total Bilirubin 3.1 H (0.2-1.0) mg/dl AST 116 H (13-39) U/L ALT 392 H (7-52) U/L Alkaline Phosphatase 162 H (34-104) U/L
--- NOTE | 2022-12-17 14:49 | Nephrology Progress Note ---
Date of Service December 17, 2022 Assessment & Plan (1) Hyponatremia: Plan: Based on the physical exam history and the urine test the etiology of hyponatremia appears to be a combination of underlying SIADH likely triggered by the persistent nausea he has had for the last few days as well as low solute diet. Sodium is 131 today. Admission sodium was 125. -Continue urea 15 g twice daily -Fluid limit 1.2 L daily. -Daily BMP Case was discussed with hospitalist (2) Transaminitis: Plan: Abnormal LFTs consistent with obstructive pattern related with gallstone. GI on board. Patient s/p ERCP. Admission and Anticipated Discharge Date Admission Date: December 14, 2022 Subjective Seen for hyponatremia. He feels better. No shortness of breath. No vomiting or diarrhea. Sodium is uptrending to 131 Review of Systems Review of Systems: All other systems were reviewed and negative except as noted in HPI Physical Exam Physical Exam: General exam: Appears comfortable, no acute distress HEENT: Pupils are equal and reactive to light Neck: No JVD, neck is supple trachea is midline Respiratory system: Clear breath sounds bilaterally. Gastrointestinal: Abdomen is soft, non distended, non tender, bowel sounds are present CVS: Regular rate and rhythm. No murmurs, rubs or gallops Musculoskeletal: No joint or muscle tenderness Extremities: Non tender, no edema, peripheral pulses are present Neuro: Oriented, no tremors, no focal neurological deficits Skin: No rashes Results & Data Vital Signs (Past 12 Hours) Vital Signs Temp Pulse Pulse Pulse Resp BP Pulse Ox 12/17/22 13:25 36.6 C 83 20 119/78 95 12/17/22 12:25 36.8 C 89 18 118/78 95 12/17/22 11:55 36.6 C 81 20 112/76 12/17/22 11:25 37 C 91 H 18 127/84 92 12/17/22 10:55 37 C 87 20 127/85 93 12/17/22 10:40 36.5 C 90 15 134/79 94 12/17/22 10:30 91 H 18 127/85 95 12/17/22 10:20 84 20 129/97 98 12/17/22 10:10 36.4 C L 94 H 18 137/89 98 12/17/22 08:49 37 C 73 18 111/79 96 O2 Del Method O2 Flow Rate 12/17/22 13:25 Room Air 12/17/22 12:25 Room Air 12/17/22 11:55 Room Air 12/17/22 11:25 Room Air 12/17/22 10:55 Room Air 12/17/22 10:40 Room Air 12/17/22 10:30 Room Air 12/17/22 10:20 Oxymask 4 12/17/22 10:10 Oxymask 6 12/17/22 08:49 Room Air Laboratory Results 12/17/22 05:57 12/17/22 12/17/22 05:57 05:57 WBC 10.52 RBC 5.13 MCV 90.1 MCH 30.2 MCHC 33.5 RDW Std Deviation 43.2 RDW Coeff of Mauro 13.1 Plt Count 222 MPV 10.8 Phosphorus 4.2 Albumin 4.6
[2022-12-18 07:18] LABS: Hematocrit (blood only) 43.5 % (42.0-52.0); Mean Corpuscular Hemoglobin 30.2 pg (25.0-34.0); Mean Corpuscular Hgb Conc 34.5 g/dL (32.0-36.0); Mean Corpuscular Volume 87.7 fL (80.0-100.0); Mean Platelet Volume 10.9 fL (9.4-12.4); Platelet Count 244 K/uL (130-400); RDW Coefficient of Variation 12.8 % (11.5-14.5); RDW Standard Deviation 41.3 fL (36.4-46.3); Red Blood Count 4.96 M/uL (4.70-6.10); White Blood Count 15.56 K/ul (4.8-10.8)
[2022-12-18 07:40] LABS: Albumin Globulin Ratio 1.3 (0.9-2); Albumin Level 4.5 gm/dl (3.4-5.0); BUN Creatinine Ratio 35.8 (10-20); Bilirubin,Total 2.5 mg/dl (0.2-1.0); Calcium 10.2 mg/dl (8.6-10.3); Creatinine Clr Calc Pharmacy 237.1 ml/min; Est GFR (African American) 145.3 ml/min; Est GFR (Non-African American) 125.4 ml/min; Globulin 3.4 gm/dl (2.5-4.0); Phosphorus 4.3 mg/dl (2.5-4.9); Potassium 4.3 mmol/L (3.5-5.1); Total Protein 7.9 gm/dl (6.0-8.3)
[2022-12-18] MEDS: SUCRALFATE 1 GM TAB PO SCH ×2 (08:49→14:54)
[2022-12-18] MEDS: UREA (UREA-NA) 15 GM PACK PO SCH (08:49)
[2022-12-18] MEDS: SODIUM CHLORIDE 1 GM TABLET PO SCH ×2 (08:50→14:54)
[2022-12-18] MEDS: amLODIPine BESYLATE 5 MG TAB PO SCH (08:50)
[2022-12-18] MEDS: ATORVASTATIN 20 MG TAB PO SCH (08:51)
[2022-12-18] MEDS ORDERED: lisinopril 20 MG TAB PO SCH (09:00)
--- NOTE | 2022-12-18 10:39 | Surgery Progress Note ---
Date of Service December 18, 2022 Assessment & Plan (1) Choledocholithiasis: Plan: POD # 3 s/p ERCP with stone removal POD # 1 s/p laparoscopic cholecystectomy avss t. bili and lfts trending down wbc up to 15k today (likely in postop setting as afebrile) Plan: Okay to advance diet Can consider discharge this afternoon Discharge instructions will be provided continue medical management Discussed with Dr. medel who agrees with above. Admission and Anticipated Discharge Date Admission Date: December 14, 2022 Subjective feeling good minimal pain, sore at incision sites when changing positions no n,v tolerated clear liquids urinating without difficulty Physical Exam Constitutional: WD/WN, vitals as above + morbidly obese, cooperative and comfortable; no acute distress and not ill appearing Respiratory: normal respiratory effort; no respiratory distress Gastrointestinal (Abdomen): Inspection/Auscultation: abdomen normal to inspection and + abdominal surgical incision (covered with dressings, mild dry spotting present); abdomen not distended Percussion/Palpation: abdomen soft; abdomen nontender, no guarding, abdomen not rigid and abdomen not firm Skin: no rashes, warm and dry Psychiatric: Orientation: alert and oriented x 3 Results & Data Vital Signs (Past 12 Hours) Vital Signs Temp Pulse Resp BP Pulse Ox O2 Del Method 12/18/22 07:23 37.0 C 74 18 123/67 95 Room Air 12/18/22 04:59 36.7 C 68 14 102/65 97 Room Air 12/18/22 01:06 36.6 C 67 12 140/62 95 Room Air Laboratory Results 12/18/22 12/18/22 12/17/22 Range/Units 06:47 06:47 16:49 WBC 15.56 H (4.8-10.8) K/ul RBC 4.96 (4.70-6.10) M/uL Hgb 15.0 (14.0-18.0) g/dl Hct 43.5 (42.0-52.0) % MCV 87.7 (80.0-100.0) fL MCH 30.2 (25.0-34.0) pg MCHC 34.5 (32.0-36.0) g/dL RDW Std Deviation 41.3 (36.4-46.3) fL RDW Coeff of Mauro 12.8 (11.5-14.5) % Plt Count 244 (130-400) K/uL MPV 10.9 (9.4-12.4) fL Sodium 132 L (136-145) mmol/L Potassium 4.3 (3.5-5.1) mmol/L Chloride 96 L (98-107) mmol/L Carbon Dioxide 27 (21-32) mmol/L Anion Gap 9 (3-11) BUN 24 H (6-23) mg/dl Creatinine 0.67 (0.6-1.4) mg/dl Est Cr Clr Drug Dosing 237.1 ml/min Est GFR ( Amer) 145.3 ml/min Est GFR (Non-Af Amer) 125.4 ml/min BUN/Creatinine Ratio 35.8 H (10-20) Glucose 115 H (70-99(Fasting)) mg/dl POC Glucose 120 H (70-99) mg/dl Calcium 10.2 (8.6-10.3) mg/dl Phosphorus 4.3 (2.5-4.9) mg/dl Magnesium 2.0 (1.7-2.4) mg/dl Total Bilirubin 2.5 H (0.2-1.0) mg/dl AST 95 H (13-39) U/L ALT 319 H (7-52) U/L Alkaline Phosphatase 142 H (34-104) U/L Total Protein 7.9 (6.0-8.3) gm/dl Albumin 4.5 (3.4-5.0) gm/dl Globulin 3.4 (2.5-4.0) gm/dl Albumin/Globulin Ratio 1.3 (0.9-2)
--- NOTE | 2022-12-18 11:28 | Nephrology Progress Note ---
Date of Service December 18, 2022 Assessment & Plan Admission and Anticipated Discharge Date Admission Date: December 14, 2022 Subjective Assessment & Plan (1) Hyponatremia: Plan: Based on the physical exam history and the urine test the etiology of hyponatremia appears to be a combination of underlying SIADH likely triggered by the persistent nausea he has had for the last few days as well as low solute diet. Admission sodium was 125. Once he starts eating solid food good he wont have problem with hyponatremia so will d/c Urea raise Fluid limit to 1.5 L daily tomorrow Daily BMP Case was discussed with hospitalist (2) Transaminitis: Plan: Abnormal LFTs consistent with obstructive pattern related with gallstone. GI on board. Patient s/p ERCP. Subjective Seen for hyponatremia. He feels better. No shortness of breath. No vomiting or diarrhea. Sodium is up trending. Diet being advanced and is now on Liquid so does cause some problem with Hyponatremia Review of Systems Review of Systems: All other systems were reviewed and negative except as noted in HPI Physical Exam Physical Exam: General exam: Appears comfortable, no acute distress HEENT: Pupils are equal and reactive to light Neck: No JVD, neck is supple trachea is midline Respiratory system: Clear breath sounds bilaterally. Gastrointestinal: Abdomen is soft, non distended, non tender, bowel sounds are present CVS: Regular rate and rhythm. No murmurs, rubs or gallops Musculoskeletal: No joint or muscle tenderness Extremities: Non tender, no edema, peripheral pulses are present Neuro: Oriented, no tremors, no focal neurological deficits Skin: No rashes Results & Data Vital Signs (Past 12 Hours) Vital Signs Temp Pulse Resp BP Pulse Ox O2 Del Method 12/18/22 07:23 37.0 C 74 18 123/67 95 Room Air 12/18/22 04:59 36.7 C 68 14 102/65 97 Room Air 12/18/22 01:06 36.6 C 67 12 140/62 95 Room Air
--- NOTE | 2022-12-18 15:43 | Discharge Summary ---
Date of Service December 18, 2022 Admission HPI Per Admitting Provider 32-year-old man with history of hypertension, gastritis who presents with right upper quadrant pain that started 2 weeks ago and jaundice. Patient reported that he started having nausea and vomiting 2 weeks ago after e ating some food at the correctional facility. Right upper quadrant pain started shortly after. Pain was intermittent, severe, nonradiating, no known relieving or aggravating factors. Last episode of pain was about 3 days ago. He also noted change in color of his urine to tea colored for the past few days. Reported that he was told he was yellowish 2 days ago He reported that urine test at [facility] today was noted to be abnormal and they sent him to the ER. Denied any fevers, chills. No nausea vomiting today. Reported 2 episodes of shelli colored loose stool earlier today. Denied any hematochezia, melena. Denied shortness of breath. Reports chronic cough which he attributes to e- cigarette smoking. Denied chest pain, headache, dizziness. Denied dysuria, frequency urgency. Denied alcohol or illicit drug use. Reports tonsillectomy as a kid. Reports allergy to fish [rash]. Reports family history of brain tumor in mother and father from unknown cancer. Admission Exam Per Admitting Provider Constitutional: + well hydrated and + obese; no acute distress Eyes: +icterus ENMT: external ear and nose normal, oropharynx normal Respiratory: normal respiratory effort, lungs clear to auscultation Cardiovascular: Rate/Rhythm: regular rate and regular rhythm S1 S2 Gastrointestinal (Abdomen): normal bowel sounds, soft, nontender, no hepatosplenomegaly Musculoskeletal: no cyanosis or clubbing, extremities motor strength 5/5 No pedal edema Skin: +Jaundice Neurologic: PERRL, EOMI, accommodation nl, no face palsy, no dysarthria Psychiatric: A+Ox3, euthymic affect Principal Diagnosis Choledocholithiasis Obstructive jaundice Hyponatremia Discharge Exam Constitutional + well hydrated and + obese; no acute distress ENMT external ear and nose normal, oropharynx normal Respiratory normal respiratory effort, lungs clear to auscultation Cardiovascular Rate/Rhythm: regular rate and regular rhythm S1 S2 Gastrointestinal (Abdomen) normal bowel sounds, soft, nontender, no hepatosplenomegaly Musculoskeletal no cyanosis or clubbing, extremities motor strength 5/5 Neurologic PERRL, EOMI, accommodation nl, no face palsy, no dysarthria Psychiatric A+Ox3, euthymic affect Discharge Data Allergies Allergy/AdvReac Type Severity Reaction Status Date / Time Fish Containing Products Allergy Unknown ON SCI Verified 12/14/22 16:20 NATY TW MED LIST Consultations 12/14/22 15:32 Consult Gastroenterology Stat 12/14/22 16:47 ED Decision to Admit Stat 12/15/22 09:48 Consult Nephrology Routine 12/15/22 10:07 Consult General Surgery Routine Procedures Performed Operation Date: 12/17/22 07:30 Actual Procedures p Laparoscopic Cholecystectomy(Not Applicable) - Frandy Henry MD Ordered Studies 12/14/22 11:31 US gallbladder Stat 12/14/22 12:40 CT Abd and Pelvis [CT abd pelvis IV con only] Stat 12/15/22 10:51 US upper EUS PACS images Routine 12/15/22 15:00 FL ERCP biliary ductal Routine Hospital Course (1) Abdominal pain, RUQ: (2) Choledocholithiasis: (3) Transaminitis: 32-year-old obese man with history of hypertension who presents with intermittent right upper quadrant pain that started 2 weeks ago and jaundice Labs notable for sodium of 125, total bilirubin of 6.9, AST of 169, ALT of 554, alkaline phosphatase of 211. Gallbladder ultrasound noted cholelithiasis within a distended and abnormally appearing gallbladder, findings suspicious for acute cholecystitis. CBD dilated up to [address] noted mild biliary ductal dilatation, possible CBD calculi, mild gallbladder distention without adjacent infiltration. Patient has choledocholithiasis, obstructive jaundice. Low suspicion for cholecystitis. Had no leukocytosis on admission. Leukocytosis today likely reactive from OR yesterday. No fever or abd pain S/P ERCP on 12/15/22 Had choledocholithiasis s/p stent Will need follow up with GI for repeat ERCP in 3 months S/P lap cholecystectomy on 12/17/22 Tolerating diet well LFTs trending down Tbil 6.9-->8.4-->>2.5 AST 169-->161-->>195 ALT 554-->479-->>319 Alk P 211-->187-->>142 (4) Hyponatremia: Sodium was 125 on admission Does not have any previous labs to compare. Serum osm is 269. Uosm is 435. Marilou 91. TSH 1.265 Findings suggests SIADH. May also be mixed picture with jaundice and poor intake some days prior due to abd pain Was managed with [employer] Na improved, up to 132 today (5) Hypertension: Controlled. Continue amlodipine and lisinopril (6) Morbid obesity with BMI of 45.0-49.9, adult: Patient is morbidly obese. Lifestyle modification education. Called [facility] Dr Hunt and updated her Patient discharged back to care home Total Time Total Time Spent Total Time Spent (In Minutes): 40 Total Time Includes: Examination of the Patient, Discharge Planning, Medication Reconciliation and Communication With Other Providers Discharge Plan Discharge Items Patient Disposition: [facility] Reason For Visit: JAUNDICE, RUQ PAIN Discharge Diagnosis: Choledocholithiasis Obstructive jaundice Hyponatremia Activity: Resume your previous activity Non-emergency contact: Primary Care Provider, Surgeon and Hse Coordinator Call non-emergency contact if: you have any medication questions Follow-up/Referrals: Naty PAIZ [Primary Care Provider] - Diet: Heart Healthy and Low Fat Fluids: 1500ml (6 cups) Addfaith Attending Provider Instructions: Mr Hummel. You came to the hospital due to Right abdominal pain and jaundice. You were evaluated and found to have gall stones and obstructive jaundice. You had ERCP done by Hse Coordinator on 12/15/22 and had a stent placed. You will need to follow up with Hse Coordinator in 3 months for repeat ERCP to remove the stent. You had laparoscopic cholecystectomy by General Surgery on 12/17/22 and had your Gall bladder removed. Please follow up the Post-Surgical Discharge Instructions. It was a pleasure taking care of you. Addtl Perforator Loader Provider Instructions: Post-Surgical ~Discharge Instructions Activity Recommendations: - lifting limitation: (20 pounds for 4 weeks), - exercise/sex/sports limit: (nonstrenuous for 2 weeks), - driving or machine use limit: (none for 1 week), - Shower/bathe limit: (may shower beginning tomorrow) Diet: - Low fat, heart healthy diet recommended SPECIAL CARE INSTRUCTIONS: - May shower. Let water run over area and pat dry. Do not submerge incisions underwater for 2 weeks. - Leave steri strips on for one week and then remove. - Call the surgeon's office with any questions or concerns - - (ex. temperature higher than 101 degrees F, excessive bleeding or pain). MEDICATIONS: - Resume previous medications unless instructed otherwise by your surgeon. - may alternate extra strength Tylenol and Ibuprofen as needed for pain -650 mg Tylenol every 6 hours as needed - Ibuprofen 600 mg every 6 hours as needed (take with food) FOLLOW UP VISIT: - If not already scheduled, please call the office to schedule a two week follow-up appointment. Office number Pending Studies at Discharge: Yes (gallbladder pathology) Stand-Alone Forms: My [facility] Skilled Items Patient informed of condition?: Yes Discharge Level of Care: Other Communicable Disease: No Discharge Prognosis: Improving Lines: None Urinary Catheter: No Medications and DC Order Prescriptions: Continued atorvastatin 20 mg Tablet 20 mg PO DAILY sucralfate 1 gram Tablet 1 g PO TID lisinopril 20 mg Tablet 20 mg PO BID amlodipine 5 mg Tablet 5 mg PO DAILY Discharge Orders: Discharge Order (Routine); Ordered 12/18/22 Ordered By: Lana Hacektt Admission Data Admit Date/Time: 12/14/22 16:35 Attending Provider: Lana Hackett I. Admit Provider: Lana Hackett I. Primary Care Provider: Naty PAIZ Other Providers: Mary Alice Conway ; Lana Hackett I. ; Venkat Feldman ; Eder Navarro ; Kyler Yoo ; Andree Kirkland ; Carmine Severino ; Frandy Henry ; Evangelina Veras ; Mariam Hernandez ; Timothy Pierre Jr ; Barbara Soriano ; Sabino Benson ; Swathi Donnelly
== END 2022-12-18 16:52 | DRG 418 ==
LOC: ED 11:01 → 3W 16:35